=== PATIENT | male | born 1960 | race Caucasian/White ===

== ENCOUNTER 2016-09-23 17:04 | Emergency (ER) | payer MEDICAID, OTHER ==
[~2016-09-23] VITALS: Ht 177.8 cm; Wt 63.5 kg
[~2016-09-23 17:04] MED LIST: ADVAIR 250-501 EACH INH; ALBUTEROL SULF8.5 GM INH; ALBUTEROL2.5 MG/3 M INH; BACTRIM DS TAB1 EAC1 ORAL; CEPHALEXIN500 MG ORAL; CLINDAMYCIN HC150 MG ORAL; DIPHENHYDRAMINE25 M1 ORAL; HYDROCORTISONE28 G2 TP; HYDROXYZINE HCL50 M1 PO; IBUPROFEN600 MG ORAL; LEVAQUIN750 MG ORAL; NORCO 5-325 TA1 EACH ORAL; NORVIR100 MG ORAL; PERMETHRIN60 GM TOPIC; PREZISTA600 MG ORAL; SPIRIVA18 MCG INH; TRUVADA 200 MG1 EAC1 ORAL
[2016-09-23 17:45] VITALS: BP 136/83
[2016-09-23] MEDS ORDERED: PERMETHRIN60 GM TOPIC (18:08)
[2016-09-23] MEDS ORDERED: KEFLEX500 MG ORAL (18:08)
[2016-09-23] MEDS ORDERED: HYDROCORTISONE28 G2 TP (18:08)
[2016-09-23] MEDS ORDERED: HYDROXYZINE HCL50 M1 PO (18:08)
[2016-09-23 18:13] VITALS: BP 136/83
--- NOTE | 2016-09-24 14:46 | Emergency Room Report ---
History of Present Illness General Chief Complaint: Skin Rash/Abscess Source: Patient Present Illness HPI 55-year-old male presents ED complaining of rash to the body x3 days. Patient states he's been staying at his girlfriend's house. Patient notes diffuse rash , itchy, not painful. Notes some induration and discharge some areas where he has been scratching a lot. Denies fevers or chills. No other aggravating or relieving factors. Denies any other associated symptom Allergies: Coded Allergies: No Known Allergies (Unverified , 07/04/15) Patient History Past Medical History: none Past Surgical History: none Pertinent Family History: none Social History: Denies: alcohol use, drug use, smoking Immunizations: UTD Reviewed Nursing Documentation: PMH: Agreed, PSxH: Agreed Nursing Documentation-PMH Past Medical History: No History, Except For Hx Cancer: No Hx Gastrointestinal Problems: No Hx Neurological Problems: No Review of Systems All Other Systems: negative except mentioned in HPI Physical Exam Vital Signs Date Time Temp Pulse Resp B/P Pulse Ox O2 Delivery O2 Flow Rate FiO2 09/23/16 17:38 99.1 100 20 136/83 98 Room Air Sp02 EP Interpretation: reviewed, normal General Appearance: normal inspection, thin Head: normocephalic ENT: normal ENT inspection Neck: normal inspection Respiratory: chest non-tender, lungs clear, normal breath sounds, speaking full sentences Cardiovascular #1: regular rate, rhythm, no edema Gastrointestinal: normal bowel sounds, non tender, soft, non-distended, no guarding, no rebound Rectal: deferred Genitourinary: no CVA tenderness Musculoskeletal: normal inspection Neurologic: alert, oriented x3, responsive, motor strength/tone normal, sensory intact, speech normal Psychiatric: normal inspection Skin: rash - diffuse rash to body. linear excoriations noted. areas of induration to abdomen. no discharge Lymphatic: normal inspection Medical Decision Making Diagnostic Impression: Primary Impression: Rash and other nonspecific skin eruption ER Course Hospital Course 55-year-old male presents to ED with diffuse rash to body Differential diagnoses include: Cellulitis, dermatitis, insect bite, abscess Clinical course Patient placed on stretcher. After initial history, physical exam reveals a male in no acute distress. On exam there is a diffuse rash to the body, including the arms, chest and abdomen, face. Linear excoriations. Patches of induration and erythema where the patient has been scratching excessively. Clinically consistent with scabies. we will prescribe treatment of scabies, plus antihistamines, steroid creams Diagnosis - rash stable and discharged to home with prescription for elimite, hydroxyzine, hydrocortisone cream, keflex. Instructed to followup with PMD. Instructed return to ED if symptoms recur or worsen Last Vital Signs Date Time Temp Pulse Resp B/P Pulse Ox O2 Delivery O2 Flow Rate FiO2 09/23/16 18:13 99.1 100 20 136/83 98 Room Air Status: improved Disposition: HOME, SELF-CARE Condition: Stable Scripts Hydroxyzine Hcl (HYDROXYZINE HCL) 50 Mg Tablet 50 MG PO TID, #30 TAB Prov: NITA CEVALLOS M.D. 09/23/16 Cephalexin* (KEFLEX*) 500 Mg Capsule 500 MG ORAL Q6H, #28 CAP 0 Refills Prov: NITA CEVALLOS M.D. 09/23/16 Hydrocortisone Acetate 1% Onit (HYDROCORTISONE 1% OINT) Y Oint 28 GM TP DAILY for 10 Days, GM Prov: NITA CEVALLOS M.D. 09/23/16 Permethrin* (ELIMITE*) 60 Gm Cream..g. 1 APPLIC TOPIC ONCE, #60 GM 0 Refills Apply cream from head to toe; leave on for 8-14 hours before washing off with water; may reapply in 1 week if live mites appear. Prov: NITA CEVALLOS M.D. 09/23/16 Referrals: [facility],REFERRING (PCP) Patient Instructions: Pruritus NITA CEVALLOS M.D. Sep 24, 2016 14:46
== END 2016-09-23 18:13 | disposition home or self-care (01) ==
LOC: EMR 18:02
DX: R21 Rash and other nonspecific skin eruption (principal)
CPT/HCPCS: 99284

== ENCOUNTER 2016-09-25 09:08 | Emergency (ER) | payer OTHER ==
[~2016-09-25] VITALS: Ht 170.2 cm; Wt 68.9 kg
[~2016-09-25 09:08] MED LIST changes: +KEFLEX500 MG ORAL
[2016-09-25] MEDS ORDERED: DESONIDE15 GM TP (09:45)
--- NOTE | 2016-09-25 09:53 | Emergency Room Report ---
History of Present Illness General Chief Complaint: Skin Rash/Abscess Source: Patient Present Illness HPI 55 YO M returns again for rash/itch to face and extremities. Patient seen here 2 days prior for same. Was DCed with elimite cream - which he applied and washed off as instructed, Keflex - which he has been taking - and Hydroxyzine for itch. He denies fever/chills, blistering. Denies rash to interwebs of fingers. Patient known HIV+ on HAART. Allergies: Coded Allergies: No Known Allergies (Unverified , 07/04/15) Patient History Past Medical History: HIV Past Surgical History: none Pertinent Family History: none Social History: Denies: alcohol use, drug use, smoking Immunizations: UTD Reviewed Nursing Documentation: PMH: Agreed, PSxH: Agreed Nursing Documentation-PMH Past Medical History: No History, Except For Hx Cancer: No Hx Gastrointestinal Problems: No Hx Neurological Problems: No Review of Systems All Other Systems: negative except mentioned in HPI Physical Exam Vital Signs Date Time Temp Pulse Resp B/P Pulse Ox O2 Delivery O2 Flow Rate FiO2 09/25/16 09:24 98.1 96 18 128/75 98 Room Air Sp02 EP Interpretation: reviewed, normal General Appearance: normal inspection, well appearing, no apparent distress, alert, cachetic, other - continually twitching, easily irritated Head: normocephalic, atraumatic Eyes: bilateral eye EOMI, bilateral eye PERRL ENT: normal ENT inspection, hearing grossly normal, normal voice Neck: normal inspection, full range of motion, supple, no bony tend Cardiovascular #1: regular rate, rhythm, no edema Gastrointestinal: normal inspection, normal bowel sounds, non tender, soft, no guarding, no hernia Genitourinary: no CVA tenderness Musculoskeletal: normal inspection, back normal, normal range of motion, Brian' s Sign negative Neurologic: normal inspection, alert, oriented x3, responsive, caseworker intake III-XII nml as tested, motor strength/tone normal, speech normal Psychiatric: normal inspection, judgement/insight normal, mood/affect normal Skin: other - Multiple areas of red superifical erosion of epidermis on face, upper extremities, torso, abdomen. No blistering. No vesicles. Excoriations associated. No rash on webs of fingers. Medical Decision Making Diagnostic Impression: Primary Impression: Rash and other nonspecific skin eruption ER Course 55 YO M with rash. VSS. Afebrile. No fever/chills or blisters or vesicles Unlikely scabies as no rash between dgitis of fingers however patient already applied one round of elimite Erosions/blisters likely from scratching, picking disorder possibly related to HIV disease or HAART Concern for drug abuse/meth as well given patients appearance, likely undomiciled, cachexia, irritation Advised completion of keflex Hydroxizine as needed for itch Apply topical desonide as needed to area of itch/rash Last Vital Signs Date Time Temp Pulse Resp B/P Pulse Ox O2 Delivery O2 Flow Rate FiO2 09/25/16 09:24 98.1 96 18 128/75 98 Room Air Status: improved Disposition: HOME, SELF-CARE Condition: Improved Scripts Desonide (DESONIDE) 15 Gm Cream..g. 2 APPLIC TP BID Y for Itching/Pruritis for 7 Days, GM Prov: JAZZY COLLINS M.D. 09/25/16 Patient Instructions: Rash Additional Instructions: - Take ALL the cephelexin antibiotic until finished that you were prescribed previously - apply topical desonide to face and other areas of itch - Take the hydrox oral that you were prescribed as needed for itch - try to NOT scratch JAZZY COLLINS M.D. Sep 25, 2016 09:53
[2016-09-25 10:33] VITALS: BP 128/75
[2016-09-25 10:34] VITALS: BP 128/75
== END 2016-09-25 10:45 | disposition home or self-care (01) ==
LOC: EMR 09:30
DX: R21 Rash and other nonspecific skin eruption (principal)
CPT/HCPCS: 99283

== ENCOUNTER 2016-10-16 06:38 | Emergency (ER) | payer OTHER ==
[~2016-10-16] VITALS: Ht 180.3 cm; Wt 71.2 kg
[~2016-10-16 06:38] MED LIST changes: +DESONIDE15 GM TP
[2016-10-16 06:50] VITALS: BP 130/89
[2016-10-16] MEDS ORDERED: PERMETHRIN60 GM TOPIC (07:32)
[2016-10-16] MEDS ORDERED: HYDROCORTISONE28 G2 TP (07:32)
[2016-10-16] MEDS ORDERED: HYDROXYZINE HCL50 M1 PO (07:32)
[2016-10-16 07:40] VITALS: BP 126/78
--- NOTE | 2016-10-16 07:42 | Emergency Room Report ---
History of Present Illness General Chief Complaint: Skin Rash/Abscess Source: Patient Present Illness HPI Patient is a 55-year-old male who presented after having increased generalized itching and skin rash. Patient had prior history of scabies. He had a have any fever. He reports having a generalized itching to his face trunk and general areas. He had not been vomiting or having any changes in skin color. He denied any recent new soaps or shampoos. He had previously been treated with permethrin cream. Allergies: Coded Allergies: No Known Allergies (Unverified , 07/04/15) Patient History Past Medical History: see triage record Reviewed Nursing Documentation: PMH: Agreed, PSxH: Agreed Nursing Documentation-PMH Hx Cancer: No Hx Gastrointestinal Problems: No Hx Neurological Problems: No Review of Systems All Other Systems: negative except mentioned in HPI Physical Exam Vital Signs Date Time Temp Pulse Resp B/P Pulse Ox O2 Delivery O2 Flow Rate FiO2 10/16/16 06:42 98.1 107 16 99 Room Air 10/16/16 06:50 130/89 Sp02 EP Interpretation: reviewed, normal General Appearance: normal inspection, well appearing, no apparent distress, alert, GCS 15 Head: atraumatic ENT: normal ENT inspection, hearing grossly normal, normal voice Neck: normal inspection, full range of motion, supple, no bony tend Respiratory: normal inspection, lungs clear, normal breath sounds, no respiratory distress, no retraction, no wheezing Cardiovascular #1: regular rate, rhythm, no edema Gastrointestinal: normal inspection, normal bowel sounds, non tender, soft, no guarding, no hernia Genitourinary: no CVA tenderness Musculoskeletal: normal inspection, back normal, normal range of motion Neurologic: normal inspection, alert, oriented x3, responsive, technical assistant III-XII nml as tested, speech normal Psychiatric: normal inspection, judgement/insight normal, mood/affect normal Skin: normal color, other - small papular rash to extremities and trunk with excoriations Medical Decision Making Diagnostic Impression: Primary Impression: Dermatitis ER Course Patient presented for skin rash. Differential diagnosis included was not limited to Cevallos-Minh syndrome, scabies, urticaria, erythema multiforme, contact dermatitis. Patient's benign exam and does not appear to require any further imaging or laboratory testing at this time. The patient was given a prescription for permethrin cream as he has some lesions consistent with scabies although this does not definitely look like scabies. The patient also given hydrocortisone cream as well as Atarax for itching.The patient is advised to follow up with primary care doctor in 1-2 days. Patient is advised to return if any worsening condition or if any changes in status that are concerning. Last Vital Signs Date Time Temp Pulse Resp B/P Pulse Ox O2 Delivery O2 Flow Rate FiO2 10/16/16 06:50 98.4 78 16 130/89 100 Room Air Status: improved Disposition: HOME, SELF-CARE Condition: Stable Scripts Hydroxyzine Hcl (HYDROXYZINE HCL) 50 Mg Tablet 50 MG PO TID, #30 TAB Prov: Shahzad Youngblood 10/16/16 Hydrocortisone Acetate 1% Onit (HYDROCORTISONE 1% OINT) Y Oint 28 GM TP DAILY, #30 GM Prov: Shahzad Youngblood 10/16/16 Permethrin* (ELIMITE*) 60 Gm Cream..g. 1 APPLIC TOPIC ONCE, #60 GM 0 Refills Apply cream from head to toe; leave on for 8-14 hours before washing off with water; may reapply in 1 week if live mites appear. Prov: Shahzad Youngblood 10/16/16 Patient Instructions: Pruritus Shahzad Youngblood Oct 16, 2016 07:42
== END 2016-10-16 07:42 | disposition home or self-care (01) ==
LOC: EMR 06:50
DX: L30.9 Dermatitis, unspecified (principal)
CPT/HCPCS: 99284

== ENCOUNTER 2017-01-01 19:17 | Emergency (ER) | payer OTHER ==
[~2017-01-01] VITALS: Ht 175.3 cm; Wt 72.6 kg
[2017-01-01 19:36] VITALS: BP 114/71
[2017-01-01] MEDS ORDERED: PERMETHRIN60 GM TOPIC (19:36)
[2017-01-01] MEDS ORDERED: HYDROCORTISONE59 ML TP (19:36)
[2017-01-01 19:42] VITALS: BP 114/71
--- NOTE | 2017-01-01 20:39 | Emergency Room Report ---
History of Present Illness General Chief Complaint: Skin Rash/Abscess Present Illness HPI The patient is a 56-year-old male presenting for total body itching. The patient states that he stayed at someone's house over the past week and thinks he may have scabies. The patient has had scabies multiple times in the past and this feels the same. He denies any pain. He denies using any new products. He denies any known allergies. He has not tried anything for the itching. He denies any other symptoms including nausea, vomiting, fever, chills Allergies: Coded Allergies: No Known Allergies (Unverified , 07/04/15) Patient History Past Medical History: see triage record Pertinent Family History: none Reviewed Nursing Documentation: PMH: Agreed, PSxH: Agreed Nursing Documentation-PMH Hx Cancer: No Hx Gastrointestinal Problems: No Hx Neurological Problems: No Review of Systems All Other Systems: negative except mentioned in HPI Physical Exam Vital Signs Date Time Temp Pulse Resp B/P Pulse Ox O2 Delivery O2 Flow Rate FiO2 01/01/17 19:26 98.8 94 16 114/71 93 Room Air Sp02 EP Interpretation: reviewed, normal General Appearance: no apparent distress, alert, GCS 15, non-toxic Head: normocephalic, atraumatic Eyes: bilateral eye PERRL, bilateral eye normal inspection ENT: hearing grossly normal, normal pharynx, no angioedema, normal voice Neck: full range of motion, supple/symm/no masses Respiratory: chest non-tender, lungs clear, normal breath sounds, speaking full sentences Musculoskeletal: back normal, gait/station normal, normal range of motion, non- tender Neurologic: alert, oriented x3, responsive, motor strength/tone normal, sensory intact, speech normal Psychiatric: judgement/insight normal, memory normal, mood/affect normal, no suicidal/homicidal ideation Skin: rash - There is a diffuse erythematous rash with excoriations. There is burrowing noted. No edema. No fluctuance. No bleeding or discharge. Lymphatic: no adenopathy Medical Decision Making PA Attestation Dr. Villarreal is my supervising physician. Patient management was discussed with my supervising physician Diagnostic Impression: Primary Impression: Scabies ER Course The patient is a 56-year-old male presenting for total body itching Ddx considered include but not limited to insect bite, contact dermatitis, eczema, cellulitis Physical exam is consistent with scabies He'll be discharged home with a prescription for permethrin and hydrocortisone. ER precautions are given. He will do a thorough cleaning of his clothes and his living quarters. Last Vital Signs Date Time Temp Pulse Resp B/P Pulse Ox O2 Delivery O2 Flow Rate FiO2 01/01/17 19:42 98.8 16 114/71 93 Room Air 01/01/17 19:26 94 Status: improved Disposition: HOME, SELF-CARE Condition: Improved Scripts Permethrin* (ELIMITE*) 60 Gm Cream..g. 1 APPLIC TOPIC ONCE, #60 GM 0 Refills Apply cream from head to toe; leave on for 8-14 hours before washing off with water; may reapply in 1 week if live mites appear. Prov: JAMES CALHOUN 01/01/17 Hydrocortisone (HYDROCORTISONE) 59 Ml Lotion 59 ML TP TID, #59 ML Prov: JAMES CALHOUN 01/01/17 Referrals: [facility],REFERR[facility] (PCP) Patient Instructions: Pruritus Additional Instructions: I discussed my findings with the patient. All questions and concerns have been answered. Treatment and medication compliance have been addressed. I advised the patient that they need to follow up with PMD in 3-5 days. Return to ED if symptoms worsen, new symptoms arise, or if needed for any reason. Patient verbalized understanding of discharge instructions. JAMES CALHOUN January 01, 2017 20:39
== END 2017-01-01 19:45 | disposition home or self-care (01) ==
LOC: EMR 19:35
DX: B86 Scabies (principal)
CPT/HCPCS: 99284

== ENCOUNTER 2017-01-05 18:34 | Emergency (ER) | payer OTHER ==
[~2017-01-05] VITALS: Ht 175.3 cm; Wt 72.6 kg
[~2017-01-05 18:34] MED LIST changes: +HYDROCORTISONE59 ML TP
[2017-01-05 18:53] VITALS: BP 135/89
[2017-01-05] MEDS ORDERED: HYDROCORTISONE-30 GM TOPIC (18:54)
[2017-01-05] MEDS ORDERED: PERMETHRIN60 GM TOPIC (18:54)
--- NOTE | 2017-01-05 19:10 | Emergency Room Report ---
History of Present Illness General Chief Complaint: Skin Rash/Abscess Source: Patient Present Illness [facility] Patient presents and reports a few days ago he was treated for scabies He felt that most of the rash significantly improved however there was still some areas on the neck Denies any chest pain or shortness of breath denies any fevers or chills denies any vomiting or diarrhea The area feels itchy specifically in the back of the neck region and the left ear Allergies: Coded Allergies: No Known Allergies (Unverified , 07/04/15) Patient History Past Medical History: see triage record Pertinent Family History: none Reviewed Nursing Documentation: PMH: Agreed, PSxH: Agreed Nursing Documentation-PMH Hx Cancer: No Hx Gastrointestinal Problems: No Hx Neurological Problems: No Review of Systems All Other Systems: negative except mentioned in HPI Physical Exam Vital Signs Date Time Temp Pulse Resp B/P Pulse Ox O2 Delivery O2 Flow Rate FiO2 01/05/17 18:51 98.4 83 20 135/89 96 Room Air Sp02 EP Interpretation: reviewed, normal General Appearance: well appearing, no apparent distress Head: normocephalic, atraumatic Eyes: bilateral eye EOMI, bilateral eye PERRL ENT: hearing grossly normal, normal pharynx, TMs + canals normal, uvula midline Neck: full range of motion, supple, no meningismus, no bony tend Respiratory: lungs clear, normal breath sounds, no rhonchi, no respiratory distress, no retraction, no accessory muscle use Cardiovascular #1: normal peripheral pulses, regular rate, rhythm, no edema, no gallop, no JVD, no murmur Gastrointestinal: normal bowel sounds, non tender, soft, no mass, no organomegaly, non-distended, no guarding, no hernia, no pulsatile mass, no rebound Musculoskeletal: normal inspection Neurologic: oriented x3, responsive, trench digging machine operator III-XII nml as tested, motor strength/ tone normal, sensory intact Psychiatric: mood/affect normal Skin: other - Patient has a few areas in the posterior neck region and the lateral side on the right, with scab formation, linear, there is also an area on the left lateral ear, likely in line with scabies, Lymphatic: normal inspection, no adenopathy Medical Decision Making Diagnostic Impression: Primary Impression: Scabies Additional Impression: Dermatitis ER Course Patient appears to have significantly improved Therapy for scabies often does take more than one treatment Patient was given prescription for refill of the medication and will have close patient followup Last Vital Signs Date Time Temp Pulse Resp B/P Pulse Ox O2 Delivery O2 Flow Rate FiO2 01/05/17 18:53 98.4 20 135/89 96 Room Air 01/05/17 18:51 83 Status: unchanged Disposition: HOME, SELF-CARE Condition: Stable Scripts Hydrocortisone/Aloe Vera 1%* (HYDROCORTISONE-ALOE 1% CREAM*) Y Cr 1 APPLIC TOPIC Q6H Y for Itching for 7 Days, #30 GM Prov: SONIA TAM D.O. 01/05/17 Permethrin* (ELIMITE*) 60 Gm Cream..g. 1 APPLIC TOPIC ONCE, #60 GM 2 Refills Apply cream from head to toe; leave on for 8-14 hours before washing off with water; may reapply in 1 week if live mites appear. Prov: SONIA TAM D.O. 01/05/17 Patient Instructions: Scabies, Pediatric, Rash, [id number] Additional Instructions: Patient is provided with the discharge instructions notified to follow up with primary doctor in the next 2-3 days otherwise return to the er with any worsening symptoms. Please note that this report is being documented using [employer] technology. This can lead to erroneous entry secondary to incorrect interpretation by the dictating instrument. SONIA TAM D.O. January 05, 2017 19:10
[2017-01-05 19:14] VITALS: BP 135/89
== END 2017-01-05 19:15 | disposition home or self-care (01) ==
LOC: EMR 18:48
DX: B86 Scabies (principal); L30.9 Dermatitis, unspecified
CPT/HCPCS: 99284

== ENCOUNTER 2017-01-24 14:41 | Emergency (ER) | payer OTHER ==
[~2017-01-24] VITALS: Ht 177.8 cm; Wt 76.2 kg
[~2017-01-24 14:41] MED LIST changes: +HYDROCORTISONE-30 GM TOPIC
[2017-01-24 15:07] VITALS: BP 112/62
[2017-01-24] MEDS ORDERED: PERMETHRIN60 GM TOPIC (15:26)
[2017-01-24] MEDS ORDERED: KENALOG 0.5% CR15 GM APPLIC (15:26)
[2017-01-24] MEDS ORDERED: HYDROXYZINE HCL25 M1 PO (15:26)
--- NOTE | 2017-01-24 15:27 | Emergency Room Report ---
History of Present Illness General Chief Complaint: Skin Rash/Abscess Source: Patient Present Illness HPI 56 y/o homeless mail c/o rash all over body. Believes he has scabies as he has a history of it. States his rash is all over body and under his nails and highly pruritic and especially in his pubic area. No modifying factors and denies taking medication for his sxs. Allergies: Coded Allergies: No Known Allergies (Unverified , 07/04/15) Patient History Past Medical History: see triage record Past Surgical History: none Pertinent Family History: none Reviewed Nursing Documentation: PMH: Agreed, PSxH: Agreed Nursing Documentation-PMH Past Medical History: No History, Except For Hx Diabetes: Yes Hx Cancer: No Hx Gastrointestinal Problems: No Hx Neurological Problems: No Review of Systems All Other Systems: negative except mentioned in HPI Physical Exam Vital Signs Date Time Temp Pulse Resp B/P Pulse Ox O2 Delivery O2 Flow Rate FiO2 01/24/17 14:49 97.9 93 18 112/62 95 Room Air Sp02 EP Interpretation: reviewed, normal General Appearance: no apparent distress, alert, GCS 15, non-toxic Head: normocephalic, atraumatic Eyes: bilateral eye normal inspection ENT: normal ENT inspection Respiratory: normal breath sounds, no respiratory distress, speaking full sentences Cardiovascular #1: normal capillary refill Musculoskeletal: gait/station normal Neurologic: alert, oriented x3, responsive, motor strength/tone normal, sensory intact, speech normal Psychiatric: judgement/insight normal, memory normal, mood/affect normal, no suicidal/homicidal ideation Skin: normal color, warm/dry, well hydrated, rash - scattered papular rash with macules with central crusting. Nailbeds are erythematous bilaterally Medical Decision Making PA Attestation Dr. Montano is my supervising physician with whom patient management has been discussed with. Diagnostic Impression: Primary Impression: Rash and other nonspecific skin eruption ER Course Pt. presents to the ED c/o rash Ddx considered but are not limited to insect bite, scabies, allergic reaction, eczema, viral exanthem, abscess, cellulitis Vital signs: are WNL, pt. is afebrile H&PE are most consistent with non-specific rash, possible scabies based on hx ORDERS: none required at this time, the diagnosis is clinical ED INTERVENTIONS: none required at this time. DISCHARGE: At this time pt. is stable for d/c to home. Will provide printed patient care instructions, and any necessary prescriptions. Care plan and follow up instructions have been discussed with the patient prior to discharge. Last Vital Signs Date Time Temp Pulse Resp B/P Pulse Ox O2 Delivery O2 Flow Rate FiO2 01/24/17 15:07 97.9 82 18 112/62 95 Room Air Disposition: HOME, SELF-CARE Condition: Stable Scripts Triamcinolone Acet (Triamcinolone Acetonide) 15 Gm Cream..g. 0.1 % APPLIC BID Y for Itching/Pruritis, #60 GM Prov: SEN SORIANO.ALeyla 01/24/17 Hydroxyzine Hcl (HYDROXYZINE HCL) 25 Mg Tablet 25 MG PO TID for 10 Days, #30 TAB Prov: SEN SORIANO 01/24/17 Permethrin* (ELIMITE*) 60 Gm Cream..g. 1 APPLIC TOPIC ONCE, #60 GM 0 Refills Apply cream from head to toe; leave on for 8-14 hours before washing off with water; may reapply in 1 week if live mites appear. Prov: SEN SORIANO 01/24/17 Patient Instructions: Rash, Scabies, Pediatric Additional Instructions: Takie medication as directed. Patient advised to follow up with primary care provider within next 3-5 days. Keep splint and crutches as directed. Advised patient to use RICE therapy and nsaids as prescribed. Patient is to go to the ER immediately if they experience any pain that is not responding to medication , excess swelling, pressure feeling, loss of color, cyanosis, paralysis, or numbness. SEN SORIANO Jan 24, 2017 15:27
[2017-01-24 15:31] VITALS: BP 120/70
== END 2017-01-24 15:30 | disposition home or self-care (01) ==
LOC: EMR 15:05
DX: R21 Rash and other nonspecific skin eruption (principal); Z59.0 Homelessness; E11.9 Type 2 diabetes mellitus without complications
CPT/HCPCS: 99284

== ENCOUNTER 2017-02-24 14:04 | Emergency (ER) | payer OTHER ==
[~2017-02-24] VITALS: Ht 175.3 cm; Wt 79.4 kg
[~2017-02-24 14:04] MED LIST changes: +HYDROXYZINE HCL25 M1 PO; +KENALOG 0.5% CR15 GM APPLIC
[2017-02-24 14:51] VITALS: BP 128/75
[2017-02-24] MEDS ORDERED: BENADRYL25 MG ORAL (14:52)
[2017-02-24] MEDS ORDERED: ANTI-ITCH56 GM TP (14:52)
[2017-02-24 15:06] VITALS: BP 128/75
--- NOTE | 2017-03-01 05:48 | Emergency Room Report ---
History of Present Illness General Chief Complaint: Skin Rash/Abscess Source: Patient Present Illness HPI Patient is a 52-year-old male who presented after increased rash. A gradual onset of symptoms. Patient reported having multiple areas of the body which had become itchy after sleeping on a sofa. The patient states he does not scabies. He has had not been having any fever. He had prior history of HIV had been compliant with his medications reportedly. Allergies: Coded Allergies: No Known Allergies (Unverified , 07/04/15) Patient History Past Medical History: see triage record Reviewed Nursing Documentation: PMH: Agreed, PSxH: Agreed Nursing Documentation-PMH Hx Diabetes: Yes Hx Cancer: No Hx Gastrointestinal Problems: No Hx Neurological Problems: No Review of Systems All Other Systems: negative except mentioned in HPI Physical Exam Vital Signs Date Time Temp Pulse Resp B/P Pulse Ox O2 Delivery O2 Flow Rate FiO2 02/24/17 14:31 98.1 73 18 131/71 99 Room Air General Appearance: well appearing, no apparent distress, alert, GCS 15 Head: normocephalic, atraumatic ENT: hearing grossly normal, normal voice Neck: full range of motion, supple, other - lymphadenopathy submandibular Respiratory: no respiratory distress, speaking full sentences Musculoskeletal: normal inspection, digits/nails normal, no calf tenderness Neurologic: normal inspection, alert, oriented x3, normal gait Psychiatric: mood/affect normal Skin: other - multiple excoriated papular lesions Medical Decision Making Diagnostic Impression: Primary Impression: Dermatitis ER Course Patient presented for skin rash. Differential diagnosis included was not limited to Cevallos-Minh syndrome, urticaria, erythema multiforme, contact dermatitis. Patient's benign exam and does not appear to require any further imaging or laboratory testing at this time. The patient's rash appears to be contact dermatitis however this may represent a viral rash. The patient was given prescription for hydrocortisone cream. He is advised followup with his own physician in the next one to 2 days for recheck. Last Vital Signs Date Time Temp Pulse Resp B/P Pulse Ox O2 Delivery O2 Flow Rate FiO2 02/24/17 15:06 98.1 80 18 128/75 99 Room Air Status: unchanged Disposition: HOME, SELF-CARE Condition: Stable Scripts Hydrocortisone 2% Cream (ANTI-ITCH 2% CREAM) Y Cr 56 GM TP TWICE A DAY, #56 GM Prov: Shahzad Youngblood 02/24/17 Diphenhydramine Hcl* (BENADRYL*) 25 Mg Capsule 25 MG ORAL Q6H Y for Itching, #30 CAP Prov: Shahzad Youngblood 02/24/17 Referrals: [facility],REFERRING (PCP) Patient Instructions: Shahzad Joseph Mar 01, 2017 05:48
== END 2017-02-24 15:15 | disposition home or self-care (01) ==
LOC: EMR 14:50
DX: L30.9 Dermatitis, unspecified (principal); E11.9 Type 2 diabetes mellitus without complications
CPT/HCPCS: 99284

== ENCOUNTER 2017-02-27 21:23 | Emergency (ER) | payer OTHER ==
[~2017-02-27] VITALS: Ht 175.3 cm; Wt 66.7 kg
[~2017-02-27 21:23] MED LIST changes: +ANTI-ITCH56 GM TP; +BENADRYL25 MG ORAL
[2017-02-27 21:45] VITALS: BP 118/82
[2017-02-27] MEDS ORDERED: Dexamethasone 4mg/ml vial IM ONE (22:00)
[2017-02-27] MEDS ORDERED: PREDNISONE20 MG ORAL (22:03)
[2017-02-27] MEDS ORDERED: PERMETHRIN60 GM TOPIC (22:07)
[2017-02-27 22:20] VITALS: BP 118/82
--- NOTE | 2017-03-01 05:56 | Emergency Room Report ---
History of Present Illness General Chief Complaint: General Complaint Source: Patient Present Illness HPI Patient is a 56-year-old male presented after having increased generalized itchy skin rash. The patient had recently been seen by me given prescription for hydrocortisone cream. Patient was noted to have persistent itchiness. He is continued to have some lymphadenopathy below his jaw. He denied any fever. He had reportedly been sleeping on a sofa which he believes given the rash. Patient denies any other locations of problems at this time. Rash is noted to be diffusely throughout his entire body. Allergies: Coded Allergies: No Known Allergies (Unverified , 07/04/15) Patient History Past Medical History: see triage record Reviewed Nursing Documentation: PMH: Agreed, PSxH: Agreed Nursing Documentation-PMH Past Medical History: No Stated History Hx Diabetes: Yes Hx Cancer: No Hx Gastrointestinal Problems: No Hx Neurological Problems: No Review of Systems All Other Systems: negative except mentioned in HPI Physical Exam Vital Signs Date Time Temp Pulse Resp B/P Pulse Ox O2 Delivery O2 Flow Rate FiO2 02/27/17 21:38 97.9 101 16 118/82 99 Room Air General Appearance: well appearing, no apparent distress, alert, GCS 15 Head: normocephalic, atraumatic ENT: hearing grossly normal, normal voice Neck: full range of motion, supple Respiratory: no respiratory distress, speaking full sentences Musculoskeletal: no calf tenderness Neurologic: normal inspection, alert, oriented x3, normal gait Psychiatric: mood/affect normal Skin: other - multiple excoriated papules Medical Decision Making Diagnostic Impression: Primary Impression: Dermatitis Additional Impression: Rash and other nonspecific skin eruption ER Course Patient presented for skin rash. Differential diagnosis included was not limited to Cevallos-Minh syndrome, scabies, urticaria, erythema multiforme, contact dermatitis. Patient's benign exam and does not appear to require any further imaging or laboratory testing at this time. The patient is given prescription for prednisone for itching as well as well. The patient was also given prescription for permethrin cream. Patient is advised to recheck with primary care physician for reexamination next 2-3 days. Last Vital Signs Date Time Temp Pulse Resp B/P Pulse Ox O2 Delivery O2 Flow Rate FiO2 02/27/17 22:20 97.9 79 16 118/82 99 Room Air Status: improved Disposition: HOME, SELF-CARE Condition: Stable Scripts Permethrin* (ELIMITE*) 60 Gm Cream..g. 1 APPLIC TOPIC ONCE, #60 GM 0 Refills Apply cream from head to toe; leave on for 8-14 hours before washing off with water; may reapply in 1 week if live mites appear. Prov: Shahzad Youngblood 02/27/17 Prednisone* (PREDNISONE*) 20 Mg Tablet 20 MG ORAL DAILY, #5 TAB Prov: Shahzad Youngblood 02/27/17 Referrals: [facility],REFERRING (PCP) Patient Instructions: Contact Dermatitis, [id number] Shahzad Youngblood Mar 01, 2017 05:56
== END 2017-02-27 22:17 | disposition home or self-care (01) ==
LOC: EMR 21:40
DX: L30.9 Dermatitis, unspecified (principal); E11.9 Type 2 diabetes mellitus without complications
CPT/HCPCS: 96372; 99283; J1100

== ENCOUNTER 2017-05-02 14:39 | Emergency (ER) | payer OTHER ==
[~2017-05-02] VITALS: Ht 175.3 cm; Wt 74.8 kg
[~2017-05-02 14:39] MED LIST changes: +PREDNISONE20 MG ORAL
[2017-05-02 15:04] VITALS: BP 138/80
--- NOTE | 2017-05-02 15:13 | Emergency Room Report ---
History of Present Illness General Chief Complaint: Allergic Reaction Source: Patient Present Illness HPI 56 YO Male presents to the ED c/O severe itchy rash that he rates as 10/10 in severity , with no pain to the UE's, LE's, chest, neck and face x 2 weeks. pt. believes he developed symptoms after moving into a new apartment. pt. denies fevers, chills, or recent illness. Pt. reports hx of scabies. Denies new medications or body washes or creams. Denies swelling of the lips, tongue , throat or airway. Denies wheezing, or shortness of breath. Denies recent travel , recent illness or ill contacts. denies blisters, oral lesions, or sloughing of the skin. Denies CP, Palpitations, LOC, AMS, dizziness, Changes in Vision, Sensation, paresthesias, or a sudden severe headache. Allergies: Coded Allergies: No Known Allergies (Unverified , 07/04/15) Patient History Past Medical History: see triage record Past Surgical History: none Pertinent Family History: none Immunizations: UTD Reviewed Nursing Documentation: PMH: Agreed, PSxH: Agreed Nursing Documentation-PMH Hx Cardiac Problems: No Hx Hypertension: No Hx Pacemaker: No Hx Asthma: No Hx COPD: No Hx Diabetes: No Hx Cancer: No Hx Gastrointestinal Problems: No Hx Dialysis: No History Of Psychiatric Problem: No Hx Neurological Problems: No Hx Cerebrovascular Accident: No Hx Seizures: No Review of Systems All Other Systems: negative except mentioned in HPI Physical Exam Vital Signs Date Time Temp Pulse Resp B/P (MAP) Pulse Ox O2 Delivery O2 Flow Rate FiO2 05/02/17 14:43 98.1 98 22 131/82 96 Room Air Sp02 EP Interpretation: reviewed, normal General Appearance: alert, GCS 15, non-toxic, mild distress - pt. can't stop scratching durring PE. Head: normocephalic, atraumatic Eyes: bilateral eye normal inspection, bilateral eye PERRL ENT: hearing grossly normal, normal pharynx, no angioedema, normal voice, other - no swelling of the lips or tongue Neck: full range of motion, supple/symm/no masses Respiratory: chest non-tender, lungs clear, normal breath sounds, speaking full sentences Cardiovascular #1: regular rate, rhythm Musculoskeletal: back normal, gait/station normal, normal range of motion, non- tender Neurologic: alert, oriented x3, responsive, motor strength/tone normal, sensory intact, speech normal Psychiatric: judgement/insight normal, memory normal, mood/affect normal Skin: normal color, warm/dry, well hydrated, rash - multiple papules in linear fashion with excoriations on the bilateral wrists radiating up the UE toward axilla, across torso, posterior neck and hair line, bilateral ankles, no crusting or evidence of secodnary infection, no LAD, non blanching, no blisters or vessicles Lymphatic: no adenopathy Medical Decision Making PA Attestation Dr. Montano is my supervising Physician whom patient management has been discussed with. Diagnostic Impression: Primary Impression: Rash and other nonspecific skin eruption Additional Impression: Scabies ER Course 56 YO Male presents to the ED c/O severe itchy rash that he rates as 10/10 in severity , with no pain to the UE's, LE's, chest, neck and face x 2 weeks. pt. believes he developed symptoms after moving into a new apartment. pt. denies fevers, chills, or recent illness. Pt. reports hx of scabies. Denies new medications or body washes or creams. Denies swelling of the lips, tongue , throat or airway. Denies wheezing, or shortness of breath. Denies recent travel , recent illness or ill contacts. denies blisters, oral lesions, or sloughing of the skin. Denies CP, Palpitations, LOC, AMS, dizziness, Changes in Vision, Sensation, paresthesias, or a sudden severe headache. Ddx considered but are not limited to cellulitis, scabies, shingles, varicella, dermatitis, urticaria, eczema, tinea Vital signs: are WNL, pt. is afebrile H&PE are most consistent with Scabies infestation and localized reaction. ORDERS: none required at this time, the diagnosis is clinical ED INTERVENTIONS: -Prednisone 60mg PO d/w pt. the importance of thorough cleaning of all bedding and clothing to deter re-current infestation. -d/w pt that may require dermatological follow up if he continues to have symptoms. gave ED return precautions for worsening or new symptoms. DISCHARGE: At this time pt. is stable for d/c to home. Will provide printed patient care instructions, and any necessary prescriptions. Care plan and follow up instructions have been discussed with the patient prior to discharge. Last Vital Signs Date Time Temp Pulse Resp B/P (MAP) Pulse Ox O2 Delivery O2 Flow Rate FiO2 05/02/17 15:04 98.2 84 20 138/80 96 Room Air Disposition: HOME, SELF-CARE Condition: Stable Scripts Prednisone* (PREDNISONE*) 20 Mg Tablet 40 MG ORAL DAILY for 5 Days, #10 TAB Prov: Carol Marshall 05/02/17 Diphenhydramine Hcl (BENADRYL ALLERGY) 25 Mg Tablet 25 MG PO Q6HR, #30 TAB Prov: Carol Marshall 05/02/17 Permethrin* (ELIMITE*) 60 Gm Cream..g. 1 APPLIC TOPIC ONCE, #60 GM 3 Refills Apply cream from head to toe; leave on for 8-14 hours before washing off with water; may reapply in 1 week if live mites appear. Prov: Carol Marshall 05/02/17 Patient Instructions: Contact Precautions, [id number], Scabies, Pediatric Additional Instructions: Take medications as directed. Follow up with a Primary Care Provider in 3-5 days, even if your symptoms have resolved. --Please review list of primary care clinics, if you do not already have a primary care provider Return sooner to ED if new symptoms occur, or current symptoms become worse. Do not drink alcohol, drive, or operate heavy machinery while taking Benadryl as this may cause drowsiness. - Please note that this Emergency Department Report was dictated using [employer] splitter technology software, occasionally this can lead to erroneous entry secondary to interpretation by the dictation equipment. Carol Marshall May 02, 2017 15:13
[2017-05-02] MEDS ORDERED: PERMETHRIN60 GM TOPIC (15:20)
[2017-05-02] MEDS ORDERED: BENADRYL ALLERG25 M1 PO (15:20)
[2017-05-02] MEDS ORDERED: PREDNISONE20 MG ORAL (15:20)
[2017-05-02 15:39] VITALS: BP 133/84
== END 2017-05-02 15:44 | disposition home or self-care (01) ==
LOC: EMR 15:15
DX: R21 Rash and other nonspecific skin eruption (principal); B86 Scabies
CPT/HCPCS: 99284

== ENCOUNTER 2017-05-18 04:16 | Emergency (ER) | payer OTHER ==
[~2017-05-18] VITALS: Ht 177.8 cm; Wt 72.6 kg
[~2017-05-18 04:16] MED LIST changes: +BENADRYL ALLERG25 M1 PO
[2017-05-18] MEDS ORDERED: PERMETHRIN60 GM TOPIC (04:53)
[2017-05-18] MEDS ORDERED: PREDNISONE20 MG ORAL (04:53)
[2017-05-18] MEDS ORDERED: DIPHENHYDRAMINE25 M1 ORAL (04:53)
[2017-05-18 05:04] VITALS: BP_SYST 132; BP_SYST 154; BP_DIAS 102; BP_DIAS 68
--- NOTE | 2017-05-18 07:04 | Emergency Room Report ---
History of Present Illness General Chief Complaint: Skin Rash/Abscess Source: Patient Present Illness HPI 56-year-old male presents ED thinning of the rash. States he's had a rash all over his body for the last 2 weeks. States he was seen here on May 02 for similar rash and was prescribed medications. States it helped initially but then the symptoms returned. Patient states he feels very itchy. Denies any pain. Denies any fevers or chills. Patient states he's had multiple episodes of scabies in the past. No other aggravating relieving factors. Denies any other associated symptom Allergies: Coded Allergies: No Known Allergies (Unverified , 07/04/15) Patient History Past Medical History: none Past Surgical History: none Pertinent Family History: none Social History: Denies: smoking, alcohol use, drug use Immunizations: UTD Reviewed Nursing Documentation: PMH: Agreed, PSxH: Agreed Nursing Documentation-PMH Hx Cardiac Problems: No Hx Hypertension: No Hx Pacemaker: No Hx Asthma: No Hx COPD: No Hx Diabetes: No Hx Cancer: No Hx Gastrointestinal Problems: No Hx Dialysis: No Hx Neurological Problems: No Hx Cerebrovascular Accident: No Hx Seizures: No Review of Systems All Other Systems: negative except mentioned in HPI Physical Exam Vital Signs Date Time Temp Pulse Resp B/P (MAP) Pulse Ox O2 Delivery O2 Flow Rate FiO2 05/18/17 04:37 98.1 93 18 154/102 97 Room Air Sp02 EP Interpretation: reviewed, normal General Appearance: no apparent distress, alert, GCS 15, non-toxic Head: normocephalic, atraumatic Eyes: bilateral eye normal inspection, bilateral eye PERRL ENT: hearing grossly normal, normal pharynx, no angioedema, normal voice Neck: full range of motion, supple/symm/no masses Respiratory: chest non-tender, lungs clear, normal breath sounds, speaking full sentences Cardiovascular #1: regular rate, rhythm, no edema Cardiovascular #2: 2+ carotid (R), 2+ carotid (L), 2+ radial (R), 2+ radial (L) , 2+ dorsalis pedis (R), 2+ dorsalis pedis (L) Gastrointestinal: normal bowel sounds, non tender, soft, non-distended, no guarding, no rebound Rectal: deferred Genitourinary: normal inspection, no CVA tenderness Musculoskeletal: back normal, gait/station normal, normal range of motion, non- tender Neurologic: alert, oriented x3, responsive, motor strength/tone normal, sensory intact, speech normal Psychiatric: judgement/insight normal, memory normal, mood/affect normal, no suicidal/homicidal ideation Reflexes: 3+ bicep (R), 3+ bicep (L), 3+ tricep (R), 3+ tricep (L), 3+ knee (R) , 3+ knee (L) Skin: normal color, warm/dry, well hydrated, rash - multiple linear excoriations to body, between fingers Lymphatic: no adenopathy Medical Decision Making Diagnostic Impression: Primary Impression: Scabies Additional Impression: Dermatitis ER Course Hospital Course 56-year-old male presents to ED with rash to body Differential diagnoses include: Cellulitis, dermatitis, insect bite, abscess Clinical course Patient placed on stretcher. After initial history, physical exam reveals a middle aged male in no acute distress. On exam there are multiple linear excoriations noted to the extremities, face, and fingers. Consistent with scabies. I reviewed EMR patient is been here multiple times with similar episodes noted to be either dermatitis or scabies. We will treat the similar fashion Diagnosis - scabies stable and discharged to home with prescription for prednisone, permethrin, benedryl. Instructed to followup with PMD. Instructed return to ED if symptoms recur or worsen Last Vital Signs Date Time Temp Pulse Resp B/P (MAP) Pulse Ox O2 Delivery O2 Flow Rate FiO2 05/18/17 05:04 132/68 05/18/17 05:04 98.1 18 97 Room Air 05/18/17 04:37 93 Status: improved Disposition: HOME, SELF-CARE Condition: Stable Scripts Diphenhydramine Hcl* (DIPHENHYDRAMINE HCL*) 25 Mg Capsule 25 MG ORAL Q6H Y for Itching, #30 CAP 0 Refills Prov: NITA CEVALLOS M.D. 05/18/17 Prednisone* (PREDNISONE*) 20 Mg Tablet 40 MG ORAL DAILY, #10 TAB Prov: NITA CEVALLOS M.D. 05/18/17 Permethrin* (ELIMITE*) 60 Gm Cream..g. 1 APPLIC TOPIC ONCE, #60 GM 0 Refills Apply cream from head to toe; leave on for 8-14 hours before washing off with water; may reapply in 1 week if live mites appear. Prov: NITA CEVALLOS M.D. 05/18/17 Referrals: [facility],REFERRING (PCP) Patient Instructions: Contact Precautions, [id number] NITA CEVALLOS M.D. May 18, 2017 07:04
== END 2017-05-18 05:05 | disposition home or self-care (01) ==
LOC: EMR 04:45
DX: B86 Scabies (principal); L30.9 Dermatitis, unspecified
CPT/HCPCS: 99284

== ENCOUNTER 2017-06-09 15:17 | Emergency (ER) | payer OTHER ==
[~2017-06-09] VITALS: Ht 182.9 cm; Wt 77.1 kg
--- NOTE | 2017-06-09 16:59 | Emergency Room Report ---
History of Present Illness General Chief Complaint: Skin Rash/Abscess Present Illness HPI 56-year-old male presents emergency department complaining of return of his moderate she into multiple lesions of the extremities x2 days. Patient states that he recently was treated for scabies and that initially his symptoms improved however he has had return of the symptoms. Patient reports that he is been having difficulty decontaminating his surroundings to avoid re- contamination.Denies lesions/rashes elsewhere on the body. Denies new medications or body washes or creams. Denies swelling of the lips, tongue , throat or airway. Denies wheezing, or shortness of breath. Denies recent travel , recent illness or ill contacts. denies blisters, oral lesions, or sloughing of the skin. Denies CP, Palpitations, LOC, AMS, dizziness, Changes in Vision, Sensation, paresthesias, or a sudden severe headache. Allergies: Coded Allergies: No Known Allergies (Unverified , 07/04/15) Patient History Past Medical History: see triage record Past Surgical History: none Pertinent Family History: none Reviewed Nursing Documentation: PMH: Agreed, PSxH: Agreed Nursing Documentation-PMH Hx Cardiac Problems: No Hx Hypertension: No Hx Pacemaker: No Hx Asthma: No Hx COPD: No Hx Diabetes: No Hx Cancer: No Hx Gastrointestinal Problems: No Hx Dialysis: No Hx Neurological Problems: No Hx Cerebrovascular Accident: No Hx Seizures: No Review of Systems All Other Systems: negative except mentioned in HPI Physical Exam Vital Signs Date Time Temp Pulse Resp B/P (MAP) Pulse Ox O2 Delivery O2 Flow Rate FiO2 06/09/17 15:25 98.1 86 20 149/84 99 Room Air Sp02 EP Interpretation: reviewed, normal General Appearance: no apparent distress, alert, GCS 15, non-toxic Head: normocephalic, atraumatic Eyes: bilateral eye normal inspection, bilateral eye PERRL ENT: hearing grossly normal, normal pharynx, no angioedema, normal voice, other - no swelling of the lips or tongue Neck: full range of motion Respiratory: lungs clear, normal breath sounds, no wheezing, speaking full sentences Cardiovascular #1: regular rate, rhythm Musculoskeletal: back normal, gait/station normal, normal range of motion, non- tender, no calf tenderness Neurologic: alert, oriented x3, responsive, motor strength/tone normal, sensory intact, speech normal Psychiatric: mood/affect normal Skin: normal color, warm/dry, well hydrated, rash - excoriations to bilateral upper and lower extremities, neck, and flanks. no evidence of secondary infeciton noted, no blisters no vesicles. Medical Decision Making PA Attestation Dr. Montano is my supervising Physician whom patient management has been discussed with. Diagnostic Impression: Primary Impression: Rash and other nonspecific skin eruption Additional Impressions: Scabies Medication refill ER Course 56-year-old male presents emergency department complaining of return of his moderate she into multiple lesions of the extremities x2 days. Patient states that he recently was treated for scabies and that initially his symptoms improved however he has had return of the symptoms. Patient reports that he is been having difficulty decontaminating his surroundings to avoid re- contamination.Denies lesions/rashes elsewhere on the body. Denies new medications or body washes or creams. Denies swelling of the lips, tongue , throat or airway. Denies wheezing, or shortness of breath. Denies recent travel , recent illness or ill contacts. denies blisters, oral lesions, or sloughing of the skin. Denies CP, Palpitations, LOC, AMS, dizziness, Changes in Vision, Sensation, paresthesias, or a sudden severe headache. Ddx considered but are not limited to cellulitis, scabies, shingles, varicella, dermatitis, urticaria, eczema, tinea, viral exanthem, SJS Vital signs: are WNL, pt. is afebrile H&PE are most consistent with rash suspicious for scabies ORDERS: none required at this time, the diagnosis is clinical ED INTERVENTIONS: None required at this time. Encouraged patient to follow up with the fire lieutenant. DISCHARGE: At this time pt. is stable for d/c to home. Will provide printed patient care instructions, and any necessary prescriptions. Care plan and follow up instructions have been discussed with the patient prior to discharge. Last Vital Signs Date Time Temp Pulse Resp B/P (MAP) Pulse Ox O2 Delivery O2 Flow Rate FiO2 06/09/17 15:25 98.1 86 20 149/84 99 Room Air Disposition: HOME, SELF-CARE Condition: Stable Scripts Permethrin* (ELIMITE*) 60 Gm Cream..g. 1 APPLIC TOPIC ONCE, #60 GM 0 Refills Apply cream from head to toe; leave on for 8-14 hours before washing off with water; may reapply in 1 week if live mites appear. Prov: Carol Marshall 06/09/17 Diphenhydramine Hcl (BENADRYL ALLERGY) 25 Mg Tablet 25 MG PO Q6HR, #20 TAB Prov: Carol Marshall 06/09/17 Referrals: [facility],REFERR[facility] (PCP) Patient Instructions: Rash Additional Instructions: Take medications as directed. Follow up with a Primary Care Provider in 3-5 days, even if your symptoms have resolved. --Please review list of primary care clinics, if you do not already have a primary care provider Return sooner to ED if new symptoms occur, or current symptoms become worse. Do not drink alcohol, drive, or operate heavy machinery while taking Benadryl as this may cause drowsiness. - Please note that this Emergency Department Report was dictated using [email or web address]anner technology software, occasionally this can lead to erroneous entry secondary to interpretation by the dictation equipment. Carol Marshall Jun 09, 2017 16:59
[2017-06-09] MEDS ORDERED: BENADRYL ALLERG25 M1 PO (17:00)
[2017-06-09] MEDS ORDERED: PERMETHRIN60 GM TOPIC (17:00)
[2017-06-09 17:18] VITALS: BP 149/84
[2017-06-09 18:10] VITALS: BP 149/84
== END 2017-06-09 18:10 | disposition home or self-care (01) ==
LOC: EMR 16:15
DX: B86 Scabies (principal); Z76.0 Encounter for issue of repeat prescription
CPT/HCPCS: 99283

== ENCOUNTER 2017-08-18 14:21 | Emergency (ER) | payer OTHER ==
[~2017-08-18] VITALS: Ht 170.2 cm; Wt 59.0 kg
[2017-08-18] MEDS ORDERED: Morphine Sulfate 4mg/ml Inj IVP ONE (14:45)
--- NOTE | 2017-08-18 14:48 | Emergency Room Report ---
History of Present Illness General Chief Complaint: Abdominal Pain Source: Patient Present Illness HPI 56-year-old male history of alcohol abuse presenting with abdominal pain for one day. Patient pointing to his abdomen is painful all over. Started today. States that he had one episode of nonbilious nonbloody vomiting. Also states that he has had some diarrhea. Denies any history of abdominal surgeries. States that he "does not drink as much" as he used to Allergies: Coded Allergies: No Known Allergies (Unverified , 07/04/15) Patient History Past Medical History: see triage record Past Surgical History: none Pertinent Family History: none Reviewed Nursing Documentation: PMH: Agreed, PSxH: Agreed Nursing Documentation-PMH Hx Cardiac Problems: No Hx Hypertension: No Hx Pacemaker: No Hx Asthma: No Hx COPD: No Hx Diabetes: No Hx Cancer: No Hx Gastrointestinal Problems: No Hx Dialysis: No Hx Neurological Problems: No Hx Cerebrovascular Accident: No Hx Seizures: No Review of Systems All Other Systems: negative except mentioned in HPI Physical Exam Vital Signs Date Time Temp Pulse Resp B/P (MAP) Pulse Ox O2 Delivery O2 Flow Rate FiO2 08/18/17 14:25 97.5 97 20 116/60 99 Room Air Sp02 EP Interpretation: reviewed, normal General Appearance: alert, GCS 15, non-toxic, moderate distress Head: normocephalic, atraumatic Eyes: bilateral eye normal inspection, bilateral eye PERRL, bilateral eye EOMI ENT: normal ENT inspection, normal pharynx, normal voice, moist mucus membranes Neck: normal inspection, full range of motion, supple Respiratory: normal inspection, lungs clear, normal breath sounds, no respiratory distress, no retraction, no wheezing, speaking full sentences, chest symmetrical Cardiovascular #1: normal inspection, regular rate, rhythm, normal capillary refill Cardiovascular #2: 2+ radial (R), 2+ radial (L) Gastrointestinal: other - generalized tenderness, however abdomen is soft, not rigid, normal bowel sounds Genitourinary: no CVA tenderness Musculoskeletal: normal inspection, back normal, normal range of motion, non- tender Neurologic: normal inspection, alert, oriented x3, responsive, motor strength/ tone normal, sensory intact, normal gait, speech normal Psychiatric: normal inspection, judgement/insight normal, memory normal Skin: normal color, warm/dry, well hydrated, normal turgor, other - pt with generalized crusted rash on neck, abdomen, nontender Medical Decision Making Diagnostic Impression: Primary Impression: Renal insufficiency Additional Impressions: Abdominal pain Scabies Polysubstance abuse Opiate abuse, continuous Cocaine abuse ER Course 56-year-old male, history of alcohol abuse, with abdominal pain Differential Diagnosis: Gastritis, gastroenteritis, cholecystitis, appendicitis, diverticulitis, SBO, mesenteric ischemia, cardiac, UTI/pyelo Plan: Basic labs, ua, ekg pain control, IVF CT abdopelvis ER course: Patient has remained stable during ED stay. Pain improved. Repeat abdominal exam is nontender. CT negative pt has been NAD during ED stay, tolerated PO, has been talking on the phone urine positive for polysubstance use will dc home Disposition: Patient is to be discharged to home. DCed with pepcid, permethrin cream Patient is instructed to follow up with their primary care doctor within 5 days. Strict return precautions discussed with patient such as fever, chills, worsening/severe abdominal pain, nausea, vomiting, black or bloody stools, which may indicate severe illness. Patient verbalizes understanding and agrees with plan. Please note that this Emergency Department Report was dictated using [employer] Medicaltelecommunications officer technology software, occasionally this can lead to erroneous entry secondary to interpretation by the dictation equipment Rhythm Strip EP Interpretation: Yes Rate: 91 Rhythm: NSR, no PVCs, no ectopy EKG Diagnostic Results EP Interpretation: Yes Rate: normal Rhythm: NSR ST Segments: ST depressions noted in the inferior leads ASA given to patient: Y Laboratory Tests Test 08/18/17 14:40 08/18/17 16:15 White Blood Count 9.4 K/UL (4.8-10.8) Red Blood Count 5.32 M/UL (4.70-6.10) Hemoglobin 15.6 G/DL (14.2-18.0) Hematocrit 46.5 % (42.0-52.0) Mean Corpuscular Volume 88 FL (80-99) Mean Corpuscular Hemoglobin 29.4 PG (27.0-31.0) Mean Corpuscular Hemoglobin Concent 33.6 G/DL (32.0-36.0) Red Cell Distribution Width 12.2 % (11.6-14.8) Platelet Count 143 K/UL (150-450) L Mean Platelet Volume 7.9 FL (6.5-10.1) Neutrophils (%) (Auto) 71.2 % (45.0-75.0) Lymphocytes (%) (Auto) 16.5 % (20.0-45.0) L Monocytes (%) (Auto) 11.0 % (1.0-10.0) H Eosinophils (%) (Auto) 0.3 % (0.0-3.0) Basophils (%) (Auto) 0.9 % (0.0-2.0) Sodium Level 131 MMOL/L (136-145) L Potassium Level 3.5 MMOL/L (3.5-5.1) Chloride Level 96 MMOL/L (98-107) L Carbon Dioxide Level 25 MMOL/L (21-32) Anion Gap 10 mmol/L (5-15) Blood Urea Nitrogen 38 mg/dL (7-18) H Creatinine 1.7 MG/DL (0.55-1.30) H Estimate Glomerular Filtration Rate 42.2 mL/min (>60) Glucose Level 147 MG/DL (74-106) H Calcium Level 7.7 MG/DL (8.5-10.1) L Total Bilirubin 0.3 MG/DL (0.2-1.0) Aspartate Amino Transferase (AST) 29 U/L (15-37) Alanine Aminotransferase (ALT) 20 U/L (12-78) Alkaline Phosphatase 83 U/L (46-116) Troponin I 0.013 ng/mL (0.000-0.056) Total Protein 7.8 G/DL (6.4-8.2) Albumin 3.5 G/DL (3.4-5.0) Globulin 4.3 g/dL Albumin/Globulin Ratio 0.8 (1.0-2.7) L Lipase 135 U/L (73-393) Serum Alcohol < 3 mg/dL Urine Color Yellow Urine Appearance Clear Urine pH 5 (4.5-8.0) Urine Specific [place] 1.025 (1.005-1.035) Urine Protein 2+ (NEGATIVE) H Urine Glucose (UA) Negative (NEGATIVE) Urine Ketones Negative (NEGATIVE) Urine Occult Blood 3+ (NEGATIVE) H Urine Nitrite Negative (NEGATIVE) Urine Bilirubin Negative (NEGATIVE) Urine Urobilinogen Normal MG/DL (0.0-1.0) Urine Leukocyte Esterase 3+ (NEGATIVE) H Urine RBC Pending Urine WBC Pending Urine Squamous Epithelial Cells Pending Urine Bacteria Pending Urine Opiates Screen Pending Urine Barbiturates Screen Pending Phencyclidine (PCP) Screen Pending Urine Amphetamines Screen Pending Urine Benzodiazepines Screen Pending Urine Cocaine Screen Pending Urine Marijuana (THC) Screen Pending CT/MRI/US Diagnostic Results CT/MRI/US Diagnostic Results : Imaging Test Ordered: CT abdo pelvis Impression Findings: The lung bases are clear. Solid organ evaluation is limited on noncontrast imaging. Gallbladder is noted and unremarkable in appearance. There are punctate calcifications within both kidneys consistent with nonobstructive stones. The right kidney is malrotated. There is no hydronephrosis. Aortoiliac calcifications are present. Focal rounded calcification noted in the area of the fritz hepatis nonspecific. No evidence of bowel obstruction. No free air identified. Small inguinal nodes are present nonspecific. Partial visualization of the appendix which is normal. No free fluid or free air identified. IMPRESSION: Nonobstructive bilateral nephrolithiasis. Atherosclerotic disease Malrotation of the right kidney. Normal appendix. Rounded calcification in the area the fritz hepatis nonspecific. Last Vital Signs Date Time Temp Pulse Resp B/P (MAP) Pulse Ox O2 Delivery O2 Flow Rate FiO2 08/18/17 14:25 97.5 97 20 116/60 99 Room Air Disposition: HOME, SELF-CARE Condition: Improved Scripts Ondansetron Odt* (ZOFRAN ODT*) 4 Mg Tab.rapdis 4 MG ORAL Q6H Y for Nausea & Vomiting, #15 TAB 0 Refills Prov: Horacio Bai M.D. 08/18/17 Famotidine (PEPCID) 40 Mg Tablet 40 MG PO DAILY, #14 TAB 0 Refills Prov: Horacio Bai M.D. 08/18/17 Permethrin* (ELIMITE*) 60 Gm Cream..g. 1 APPLIC TOPIC ONCE, #60 GM 0 Refills Apply cream from head to toe; leave on for 8-14 hours before washing off with water; may reapply in 1 week if live mites appear. Prov: Horacio Bai M.D. 08/18/17 Horacio Bai M.D. Aug 18, 2017 14:48
[2017-08-18 15:05] LABS: BASOPHILS % (AUTO) 0.9 % (0.0-2.0); EOSINOPHILS % (AUTO) 0.3 % (0.0-3.0); LYMPHOCYTES % (AUTO) 16.5 % (20.0-45.0); MEAN CORPUSCULAR HEMOGLOBIN 29.4 PG (27.0-31.0); MEAN CORPUSCULAR HGB CONC 33.6 G/DL (32.0-36.0); MEAN CORPUSCULAR VOLUME 88 FL (80-99); MEAN PLATELET VOLUME 7.9 FL (6.5-10.1); NEUTROPHILS % (AUTO) 71.2 % (45.0-75.0); PLATELET COUNT 143 K/UL (150-450); RED BLOOD COUNT 5.32 M/UL (4.70-6.10); RED CELL DISTRIBUTION WIDTH 12.2 % (11.6-14.8); WHITE BLOOD COUNT 9.4 K/UL (4.8-10.8)
[2017-08-18 15:11] LABS: ANION GAP 10 mmol/L (5-15); CALCIUM 7.7 MG/DL (8.5-10.1); CARBON DIOXIDE 25 MMOL/L (21-32); CHLORIDE 96 MMOL/L (98-107); CREATININE 1.7 MG/DL (0.55-1.30); GLOMERULAR FILTRATION RATE 42.2 mL/min (>60); POTASSIUM 3.5 MMOL/L (3.5-5.1); SODIUM 131 MMOL/L (136-145)
[2017-08-18 15:15] LABS: ALANINE AMINOTRANSFERASE 20 U/L (12-78); ALBUMIN/GLOBULIN RATIO 0.8 (1.0-2.7); ASPARTATE AMINO TRANSFERASE 29 U/L (15-37); LIPASE 135 U/L (73-393); TOTAL PROTEIN 7.8 G/DL (6.4-8.2)
--- NOTE | 2017-08-18 16:27 | Diagnostic Imaging Report ---
Indication: Abdominal pain Technique: Continuous helical transaxial imaging of the abdomen and pelvis was obtained from the lung bases to the pubic symphysis. No intravenous contrast was administered. Coronal 2-D reformats were also obtained. Automatic Exposure Control was utilized. Total Dose length Product (DLP): 455.[address] Dose Index Volume (CTDIvol): 9.54 mGy Comparison: none Findings: The lung bases are clear. Solid organ evaluation is limited on noncontrast imaging. Gallbladder is noted and unremarkable in appearance. There are punctate calcifications within both kidneys consistent with nonobstructive stones. The right kidney is malrotated. There is no hydronephrosis. Aortoiliac calcifications are present. Focal rounded calcification noted in the area of the fritz hepatis nonspecific. No evidence of bowel obstruction. No free air identified. Small inguinal nodes are present nonspecific. Partial visualization of the appendix which is normal. No free fluid or free air identified. IMPRESSION: Nonobstructive bilateral nephrolithiasis. Atherosclerotic disease Malrotation of the right kidney. Normal appendix. Rounded calcification in the area the fritz hepatis nonspecific. The CT scanner at [facility] is accredited by the [employer] and the scans are performed using dose optimization techniques as appropriate to a performed exam including Automatic Exposure control.
[2017-08-18 16:52] LABS: APPEARANCE,URINE CLEAR; KETONES,URINE NEGATIVE (NEGATIVE); LEUKOCYTE ESTERASE ,URINE 3+ (NEGATIVE); NITRITE,URINE NEGATIVE (NEGATIVE); PH,URINE 5 (4.5-8.0); PROTEIN,URINE 2+ (NEGATIVE); UROBILINOGEN,URINE NORMAL MG/DL (0.0-1.0)
[2017-08-18] MEDS ORDERED: ZOFRAN ODT4 MG ORAL (17:06)
[2017-08-18] MEDS ORDERED: PEPCID40 MG PO (17:06)
[2017-08-18] MEDS ORDERED: PERMETHRIN60 GM TOPIC (17:06)
[2017-08-18 17:14] VITALS: BP 116/60
[2017-08-18 17:15] LABS: AMORPHOUS SEDIMENT,UR FEW /LPF; BACTERIA,URINE FEW /HPF
[2017-08-18 17:29] VITALS: BP 116/60
--- NOTE | 2017-08-31 00:21 | Cardiology Report ---
APPROVED REPORT EKG Measurement Heart [id number] Sinus rhythm with occasional premature ventricular complexes Biatrial enlargement Rightward axis Pulmonary disease pattern T wave abnormality, consider inferior ischemia Abnormal ECG
== END 2017-08-18 18:00 | disposition home or self-care (01) ==
LOC: EMR 14:36
DX: R10.9 Unspecified abdominal pain (principal); N28.9 Disorder of kidney and ureter, unspecified; B86 Scabies; F19.10 Other psychoactive substance abuse, uncomplicated; F14.10 Cocaine abuse, uncomplicated; F11.10 Opioid abuse, uncomplicated; N20.0 Calculus of kidney
CPT/HCPCS: 36415; 74176; 80053; 80307; 80329; 81003; 83690; 84484; 85025; 93005; 96361; 96374; 96375; 99284; J2270; J2405

== ENCOUNTER 2017-08-26 16:54 | Emergency (ER) | payer OTHER ==
[~2017-08-26] VITALS: Ht 177.8 cm; Wt 77.1 kg
[~2017-08-26 16:54] MED LIST changes: +PEPCID40 MG PO; +ZOFRAN ODT4 MG ORAL
[2017-08-26] MEDS ORDERED: TAMIFLU75 MG ORAL (17:55)
[2017-08-26] MEDS ORDERED: TESSALON PERLE100 MG ORAL (17:55)
--- NOTE | 2017-08-26 18:05 | Emergency Room Report ---
History of Present Illness General Chief Complaint: Upper Respiratory Illness Source: Patient Present Illness HPI 56-year-old male p/w cough for 3 days. Pt states cough is productive, with yellow sputum. +fever chills runny nose, myalgias. No sick contacts or recent travel. Patient does not smoke. Allergies: Coded Allergies: No Known Allergies (Unverified , 07/04/15) Patient History Past Medical History: see triage record Past Surgical History: none Pertinent Family History: none Reviewed Nursing Documentation: PMH: Agreed, PSxH: Agreed Nursing Documentation-PMH Past Medical History: No History, Except For Hx Hypertension: No Hx Pacemaker: No Hx Asthma: No Hx COPD: Yes Hx Diabetes: Yes Hx Cancer: No Hx Gastrointestinal Problems: No Hx Dialysis: No Hx Neurological Problems: No Hx Cerebrovascular Accident: No Hx Seizures: No Review of Systems All Other Systems: negative except mentioned in HPI Physical Exam Vital Signs Date Time Temp Pulse Resp B/P (MAP) Pulse Ox O2 Delivery O2 Flow Rate FiO2 08/26/17 17:28 98.2 93 18 122/69 92 Room Air Sp02 EP Interpretation: reviewed, normal General Appearance: alert, GCS 15, non-toxic, mild distress Head: normocephalic, atraumatic Eyes: bilateral eye normal inspection, bilateral eye PERRL, bilateral eye EOMI ENT: normal ENT inspection, normal pharynx, normal voice, moist mucus membranes Neck: normal inspection, full range of motion, supple Respiratory: normal inspection, lungs clear, normal breath sounds, no respiratory distress, no retraction, no wheezing, speaking full sentences, chest symmetrical Cardiovascular #1: normal inspection, regular rate, rhythm, normal capillary refill Cardiovascular #2: 2+ radial (R), 2+ radial (L) Gastrointestinal: normal inspection, non tender, soft, non-distended, no guarding Genitourinary: no CVA tenderness Musculoskeletal: normal inspection, back normal, normal range of motion, non- tender Neurologic: normal inspection, alert, oriented x3, responsive, motor strength/ tone normal, sensory intact, normal gait, speech normal Psychiatric: normal inspection, judgement/insight normal, memory normal Skin: normal inspection, normal color, no rash, warm/dry, well hydrated, normal turgor Medical Decision Making Diagnostic Impression: Primary Impression: Upper respiratory infection ER Course 56-year-old male, 3 days of flulike illness, fever chills cough runny nose, myalgias DDX: Flulike illness vs. pneumonia Plan: CXR ER course: Patient remains nontoxic, not in resp distress. CXR obtained - no acute infiltrate Disposition: Patient is to be discharged home with a prescription of Tamiflu and Tessalon Perles Strict precautions discussed with patient on when to return to the emergency room including hemoptysis, high fevers, chills, SOB, chest pain which may indicate severe illness. Patient is to follow up with their primary care doctor within 5 days. Patient agrees with plan. Please note that this Emergency Department Report was dictated using [employer] pi developer technology software, occasionally this can lead to erroneous entry secondary to interpretation by the dictation equipment Chest X-ray CXR: Ordered: Yes 1 view Indication: Cough EP interpretation: Yes Interpretation: No consolidation, no effusion, no PTX, no acute cardiopulmonary disease Impression: No acute disease Electronically signed by Horacio Bai MD Last Vital Signs Date Time Temp Pulse Resp B/P (MAP) Pulse Ox O2 Delivery O2 Flow Rate FiO2 08/26/17 17:28 98.2 93 18 122/69 92 Room Air Disposition: HOME, SELF-CARE Condition: Stable Scripts Benzonatate* (TESSALON PERLE*) 100 Mg Capsule 100 MG ORAL THREE TIMES A DAY for 7 Days, #21 PERLE 0 Refills Prov: Horacio Bai M.D. 08/26/17 Oseltamivir Phosphate (Tamiflu) 75 Mg Capsule 75 MG ORAL TWICE A DAY for 5 Days, #10 CAP 0 Refills Prov: Horacio Bai M.D. 08/26/17 Patient Instructions: Upper Respiratory Infection, Adult Additional Instructions: Please see your doctor in 4 days without fail Horacio Bai M.D. Aug 26, 2017 18:05
[2017-08-26 18:11] VITALS: BP 126/81
--- NOTE | 2017-08-27 08:51 | Diagnostic Imaging Report ---
Indication: Cough, shortness of breath Technique: 2 views of the chest Comparison: 02/22/2016 Findings: There is minimal atelectasis of the left lung base. Lungs and pleural spaces are clear otherwise. The heart size is normal. No significant change Impression: Minimal left basilar atelectasis No acute process
== END 2017-08-26 18:11 | disposition home or self-care (01) ==
LOC: EMR 17:51
DX: J06.9 Acute upper respiratory infection, unspecified (principal); E11.9 Type 2 diabetes mellitus without complications; J44.9 Chronic obstructive pulmonary disease, unspecified
CPT/HCPCS: 71045; 99283

== ENCOUNTER 2017-10-18 12:01 | Emergency (ER) | payer OTHER ==
[~2017-10-18] VITALS: Ht 177.8 cm; Wt 72.6 kg
[~2017-10-18 12:01] MED LIST changes: +TAMIFLU75 MG ORAL; +TESSALON PERLE100 MG ORAL
[2017-10-18 12:07] VITALS: BP 145/96
[2017-10-18] MEDS ORDERED: HYDROXYZINE PA100 MG ORAL (12:31)
[2017-10-18] MEDS ORDERED: OPCON-A EYE DRO15 ML OP (12:31)
[2017-10-18] MEDS ORDERED: PERMETHRIN60 GM TOPIC (12:31)
--- NOTE | 2017-10-18 12:31 | Emergency Room Report ---
History of Present Illness General Chief Complaint: Skin Rash/Abscess Source: Patient Present Illness HPI 56 yo male patient presents to ER complaining of bug bites on his entire body for the past days. Patient reports itchiness over legs, hands, web spaces, arm pits, scalp, and butt. No pain with urination, no hematuria, no genital rash. Patient denies pain, bleeding, open wounds, pus. Patient denies worsening of symptoms at certain times of the day. Patient reports bleeding after scratching areas while cleaning himself in shower. Patient reports being sent here by neighbor over concern for scabies. Patient reports having apartment sprayed for bugs professionally but symptoms have persisted. Patient reports he has not cleaned or washed clothing or bedding Patient also complains of itchy eyes during this time. Denies FB sensation, loss of vision. Patient reports no drainage, no vision changes, no hearing changes. Patient denies fever, chest pain, SOB, diarrhea. Allergies: Coded Allergies: No Known Allergies (Unverified , 07/04/15) Patient History Past Medical History: see triage record Reviewed Nursing Documentation: PMH: Agreed, PSxH: Agreed Nursing Documentation-PMH Past Medical History: No History, Except For Hx Hypertension: No Hx Pacemaker: No Hx Asthma: No Hx COPD: Yes Hx Diabetes: Yes Hx Cancer: No Hx Gastrointestinal Problems: No Hx Dialysis: No Hx Neurological Problems: No Hx Cerebrovascular Accident: No Hx Seizures: No Review of Systems All Other Systems: negative except mentioned in HPI Physical Exam Vital Signs Date Time Temp Pulse Resp B/P (MAP) Pulse Ox O2 Delivery O2 Flow Rate FiO2 10/18/17 12:07 98.0 85 16 145/96 92 98.1 Sp02 EP Interpretation: reviewed, normal General Appearance: well appearing, no apparent distress, alert, GCS 15, non- toxic Head: normocephalic, atraumatic Eyes: bilateral eye normal inspection, bilateral eye PERRL, bilateral eye EOMI , bilateral eye other - no injection, no tearing, no crusting, no pain with eye movement ENT: hearing grossly normal, normal pharynx, normal voice, uvula midline, moist mucus membranes Neck: normal inspection, full range of motion, no bony tend Respiratory: normal inspection, normal breath sounds, no accessory muscle use, no wheezing, speaking full sentences Cardiovascular #1: regular rate, rhythm Genitourinary: penis normal Musculoskeletal: back normal, digits/nails normal, gait/station normal, normal range of motion, no calf tenderness Neurologic: alert, oriented x3, responsive, motor strength/tone normal, normal gait Psychiatric: mood/affect normal Skin: other - hyperpigmented macules and papules diffusely spread over legs, seen in web spaces, no linear burrows; no acitve bleeding, no open drainage, no surrounding erythema, no signs of infection; no rash or bugs seen on scalp, neck , axilla, back Medical Decision Making PA Attestation Dr. Bai is my supervising Physician whom patient management has been discussed with. Diagnostic Impression: Primary Impression: Rash and other nonspecific skin eruption Additional Impression: Itchy eyes ER Course Pt. presents to the ED c/o rash. Ddx considered but are not limited to atopic dermatitis, scabies, shingles, hives, urticaria, angioedema., allergic reaction, allergic rhinitis. Vital signs: are WNL, pt. is afebrile ORDERS: None required at this time, the diagnosis is clinical ED INTERVENTIONS: None required at this time. DISCHARGE: At this time pt. is stable for d/c to home. Patient resting comfortably, in no acute distress, nontoxic appearing. Will provide printed patient care instructions, and any necessary prescriptions. -Rx given for Hydroxyzine for pruritic symptoms. -Rx provided for Opcon-A eye drops for itchy eyes. -Rx given for Permethrin cream. Care plan and follow up instructions have been discussed with the patient prior to discharge. Patient instructed to practice good hygiene habits; clean clothe and bedding at home.Patient instructed not to touch lesions on skin and butt then touch face and eyes. Patient instructed to contact insurance to establish primary care provider. Patient instructed to follow-up with primary care provider in 3 - 5 days for further treatment and referral. Patient questions asked and answered. Patient reports understanding and agreement to treatment plan. ER precautions given. Patient instructed to return to ER immediately for any new or worsening of symptoms including but not limited to increasing SOB, persistent fever, worsening of rash. Last Vital Signs Date Time Temp Pulse Resp B/P (MAP) Pulse Ox O2 Delivery O2 Flow Rate FiO2 10/18/17 12:07 98.0 85 16 145/96 92 98.1 Disposition: HOME, SELF-CARE Condition: Stable Scripts Naphazoline Hcl/Pheniramine (OPCON-A EYE DROPS) 15 Ml Drops 15 ML OP TID for 7 Days, #15 ML Prov: Gregorio Morrow 10/18/17 Hydroxyzine Pamoate* (HYDROXYZINE PAMOATE*) 100 Mg Capsule 100 MG ORAL Q6H for 7 Days, #20 TAB 0 Refills Prov: Gregorio Morrow 10/18/17 Permethrin* (ELIMITE*) 60 Gm Cream..g. 1 APPLIC TOPIC ONCE, #60 GM 0 Refills Apply cream from head to toe; leave on for 8-14 hours before washing off with water; may reapply in 1 week if live mites appear. Prov: Gregorio Morrow 10/18/17 Patient Instructions: Allergic Conjunctivitis, [id number], Bedbugs, Easy-to- Read, Scabies, Pediatric Additional Instructions: Followup with primary care provider in 3 -5 days. Contact insurance to establish primary care. Wash clothes and bedding at home thoroughly. Take medications as directed. Patient questions asked and answered. ER precautions given, patient instructed to return to ER immediately for any new or worsening of symptoms. Gregorio Morrow Oct 18, 2017 12:31
[2017-10-18 12:44] VITALS: BP 142/89
== END 2017-10-18 12:34 | disposition home or self-care (01) ==
LOC: EMR 12:30
DX: R21 Rash and other nonspecific skin eruption (principal); H57.8 Other specified disorders of eye and adnexa; E11.9 Type 2 diabetes mellitus without complications; J44.9 Chronic obstructive pulmonary disease, unspecified
CPT/HCPCS: 99284

== ENCOUNTER 2017-12-13 18:34 | Emergency (ER) | payer OTHER ==
[~2017-12-13] VITALS: Ht 180.3 cm; Wt 72.6 kg
[~2017-12-13 18:34] MED LIST changes: +HYDROXYZINE PA100 MG ORAL; +OPCON-A EYE DRO15 ML OP
[2017-12-13] MEDS ORDERED: ELIMITE 5% CREA60 GM TOPIC (19:10)
--- NOTE | 2017-12-13 19:10 | Emergency Room Report ---
History of Present Illness General Chief Complaint: Skin Rash/Abscess Present Illness HPI patient is a 57-year-old male who presents today with complaints of rash that began 3 days ago. He states he spent the night and friends house over the weekend and noticed a rash and itching began shortly after. He has a history medication for the itching. Denies any fever, chills or systemic symptoms. Allergies: Coded Allergies: No Known Allergies (Unverified , 07/04/15) Patient History Reviewed Nursing Documentation: PMH: Agreed; PSxH: Agreed Nursing Documentation-PMH Hx Cardiac Problems: Yes Hx Hypertension: Yes Hx Pacemaker: No Hx Asthma: No Hx COPD: Yes Hx Diabetes: Yes Hx Cancer: No Hx Gastrointestinal Problems: No Hx Dialysis: No Hx Neurological Problems: No Hx Cerebrovascular Accident: No Hx Seizures: No Review of Systems Skin: Reports: rash All Other Systems: negative except mentioned in HPI Physical Exam Vital Signs Date Time Temp Pulse Resp B/P (MAP) Pulse Ox O2 Delivery O2 Flow Rate FiO2 12/13/17 18:43 97.9 81 20 128/74 98 Room Air 97.9 Sp02 EP Interpretation: reviewed, normal General Appearance: no apparent distress, alert, GCS 15, non-toxic Head: normocephalic, atraumatic Eyes: bilateral eye normal inspection, bilateral eye PERRL ENT: hearing grossly normal, normal pharynx, no angioedema, normal voice Neck: full range of motion, supple/symm/no masses Respiratory: chest non-tender, lungs clear, normal breath sounds, speaking full sentences Cardiovascular #1: regular rate, rhythm, no edema Cardiovascular #2: 2+ carotid (R), 2+ carotid (L), 2+ radial (R), 2+ radial (L) , 2+ dorsalis pedis (R), 2+ dorsalis pedis (L) Gastrointestinal: normal bowel sounds, non tender, soft, non-distended, no guarding, no rebound Rectal: deferred Genitourinary: normal inspection, no CVA tenderness Musculoskeletal: back normal, gait/station normal, normal range of motion, non- tender, calf tenderness Neurologic: alert, oriented x3, responsive, motor strength/tone normal, sensory intact, speech normal Psychiatric: judgement/insight normal, memory normal, mood/affect normal, no suicidal/homicidal ideation Reflexes: 3+ bicep (R), 3+ bicep (L), 3+ tricep (R), 3+ tricep (L), 3+ knee (R) , 3+ knee (L) Skin: normal color, warm/dry, well hydrated, other - burrows noted in the webspace of the fingers bilateral hands, bilateral forearms and axilla. No evidence of infection Lymphatic: no adenopathy Medical Decision Making PA Attestation supervising physician is Dr. Chatterjee Diagnostic Impression: Primary Impression: Scabies ER Course Patient is treated with permethrin for scabies. Patient is educated on ways to clean his home. No evidence of infection. Instructed to follow-up with his B for further evaluation and management. Patient understands and is agreeable with plan. Last Vital Signs Date Time Temp Pulse Resp B/P (MAP) Pulse Ox O2 Delivery O2 Flow Rate FiO2 12/13/17 18:43 97.9 81 20 128/74 98 Room Air 97.9 Status: improved Disposition: HOME, SELF-CARE Condition: Stable Scripts Permethrin (Permethrin) 60 Gm Cream..g. 1 APPLIC TOPIC ONCE, #60 GM 2 Refills Prov: Andreea Fisher 12/13/17 Andreea Fisher Dec 13, 2017 19:10
[2017-12-13 19:15] VITALS: BP 128/74
[2017-12-13 20:28] VITALS: BP 128/74
== END 2017-12-13 20:00 | disposition home or self-care (01) ==
LOC: EMR 19:12
DX: B86 Scabies (principal); I10 Essential (primary) hypertension; J44.9 Chronic obstructive pulmonary disease, unspecified; E11.9 Type 2 diabetes mellitus without complications
CPT/HCPCS: 99283

== ENCOUNTER 2018-02-07 12:05 | Emergency (ER) | payer OTHER ==
[~2018-02-07] VITALS: Ht 177.8 cm; Wt 63.5 kg
[~2018-02-07 12:05] MED LIST changes: +ELIMITE 5% CREA60 GM TOPIC
[2018-02-07 12:59] VITALS: BP 155/74
--- NOTE | 2018-02-07 14:01 | Diagnostic Imaging Report ---
Indication: Pain Technique: XRAY Chest 1v Comparison: None Findings: There is mild hyperinflation with flattening of the diaphragms. There is patchy opacity at the left base which may represent atelectasis or scarring. Similar findings were seen on the prior exam. There is mild peribronchial thickening. There is trace left pleural fluid. No pneumothorax. No acute osseous abnormality. Heart size and mediastinal contours are within normal limits and stable compared to the prior exam. Previously seen bilateral nodular densities are appreciated on prior CT. Impression: Bilateral peribronchial thickening suggesting small airway disease/bronchitis. More focal opacities at the left lung base may related to atelectasis or scarring however the possibility of a developing pneumonia is not entirely excluded. Clinical correlation and follow-up exam recommended. Trace left pleural fluid. Findings suggestive of mild COPD. Grossly described bilateral nodular densities not as well-seen as compared to the prior CT. Consider non-emergent CT chest to assess for persistence/resolution of these findings.
[2018-02-07] MEDS ORDERED: Ketorolac 60mg Inj IM ONE (14:15)
[2018-02-07 14:45] LABS: HEMATOCRIT 41.5 % (42.0-52.0); HEMOGLOBIN 13.9 G/DL (14.2-18.0); MEAN CORPUSCULAR VOLUME 87 FL (80-99); PLATELET COUNT 227 K/UL (150-450); RED BLOOD COUNT 4.77 M/UL (4.70-6.10); RED CELL DISTRIBUTION WIDTH 11.2 % (11.6-14.8); WHITE BLOOD COUNT 20.5 K/UL (4.8-10.8)
[2018-02-07 15:08] LABS: ALANINE AMINOTRANSFERASE 18 U/L (12-78); ALBUMIN 2.9 G/DL (3.4-5.0); ALBUMIN/GLOBULIN RATIO 0.6 (1.0-2.7); ALKALINE PHOSPHATASE 91 U/L (46-116); ASPARTATE AMINO TRANSFERASE 18 U/L (15-37); BILIRUBIN,TOTAL 0.6 MG/DL (0.2-1.0); BLOOD UREA NITROGEN 8 mg/dL (7-18); CKMB 4.3 NG/ML (0.0-3.6); CREATINE KINASE 181 U/L (26-308); CREATININE 0.8 MG/DL (0.55-1.30)
[2018-02-07 15:14] LABS: ANION GAP 7 mmol/L (5-15); CARBON DIOXIDE 28 MMOL/L (21-32); CHLORIDE 99 MMOL/L (98-107); SODIUM 134 MMOL/L (136-145)
[2018-02-07 15:51] VITALS: BP 155/74
--- NOTE | 2018-02-07 15:58 | Diagnostic Imaging Report ---
Indication: Pain Technique: Noncontrast CT of the abdomen and pelvis utilizing automated exposure control. Axial, sagittal and coronal reformats presented. CT dose: Total DLP 506.54 mGycm; CTDI vol 10.14 mGy Comparison: 08/18/2017 Findings: Please note that evaluation of the abdominal and pelvic viscera and vascular structures is limited without the use of intravenous and oral contrast. Within these limitations the following observations are made: Peribronchial thickening with tree-in-bud opacities in the bilateral lower lobes, left greater than right. There is more focal consolidation in the lingula which may related to atelectasis/scarring or developing focus of bronchopneumonia. Are some scattered nodular densities, is noted in the periphery of the left lower lobe and measures approximately 7 mm. These may be infectious or inflammatory in etiology however follow-up is recommended. No pleural effusion or pneumothorax. Heart size within normal limits. There is unchanged calcification in the region of the fritz hepatis. Gallbladder is unremarkable. Liver contour appears smooth. Spleen adrenal glands and pancreas grossly unremarkable for noncontrast CT. There are bilateral subcentimeter renal stones. No evidence of hydronephrosis bilaterally. There is thickening of the wall of the urinary bladder. Prostate appears borderline enlarged. Multiple pelvic phleboliths again noted. There is no free peritoneal air. There is no evidence of bowel obstruction or definite inflammatory change of the mesentery however evaluation is limited without contrast. Abdominal aorta is normal in caliber with overall mild atherosclerotic calcification. No pathologically enlarged lymphadenopathy is appreciated. There are degenerative changes of the spine with plate sclerosis at L4-L5 and L5-S1 and severe loss of disc height at L5-S1. IMPRESSION: Limited exam without intravenous and oral contrast. Within these limitations: * Peribronchial thickening with tree-in-bud opacities in the bilateral lower lobes, left greater than right -nonspecific finding most commonly infectious or inflammatory in etiology. Consider infectious bronchiolitis. Small focus of more dense consolidation in the lingula which may related to atelectasis/scarring or developing focus of bronchopneumonia. * Scattered subcentimeter pulmonary nodules, largest in the left lower lobe. These may be infectious or inflammatory in etiology however follow-up is recommended. * Nonobstructing bilateral renal stones. * No evidence of bowel obstruction. * Degenerative change of the spine, most pronounced from L4 to S1. The CT scanner at [facility] is accredited by the [employer] and the scans are performed using protocols designed to limit radiation exposure to as low as reasonably achievable to attain images of sufficient resolution adequate for diagnostic evaluation.
--- NOTE | 2018-02-07 19:32 | Emergency Room Report ---
History of Present Illness General Chief Complaint: Upper Respiratory Illness Source: Patient Present Illness HPI Patient present with complaints of left lower abdominal pain nausea vomiting denies any diarrhea Pain came on fairly quickly And he has been nauseated since then Denies any chest pain He had reported initially some shortness of breath Denies any recent trauma Denies any focal weakness denies any headache Patient appears uncomfortable upon arrival Allergies: Coded Allergies: No Known Allergies (Unverified , 07/04/15) Patient History Past Medical History: see triage record Pertinent Family History: none Reviewed Nursing Documentation: PMH: Agreed; PSxH: Agreed Nursing Documentation-PMH Hx Cardiac Problems: Yes - HIV Hx Hypertension: Yes Hx Pacemaker: No Hx Asthma: No Hx COPD: Yes Hx Diabetes: Yes Hx Cancer: No Hx Gastrointestinal Problems: No Hx Dialysis: No Hx Neurological Problems: No Hx Cerebrovascular Accident: No Hx Seizures: No Review of Systems All Other Systems: negative except mentioned in HPI Physical Exam Vital Signs Date Time Temp Pulse Resp B/P (MAP) Pulse Ox O2 Delivery O2 Flow Rate FiO2 02/07/18 12:29 98.6 117 24 155/74 92 Room Air 98.6 Sp02 EP Interpretation: reviewed, normal General Appearance: mild distress - Actively nauseated Head: normocephalic, atraumatic Eyes: bilateral eye PERRL, bilateral eye EOMI ENT: normal pharynx, no angioedema Neck: supple Respiratory: lungs clear, no retraction, no accessory muscle use Cardiovascular #1: tachycardia Gastrointestinal: non tender, soft Genitourinary: no CVA tenderness Musculoskeletal: normal inspection Neurologic: alert, oriented x3, responsive Skin: no rash, warm/dry Lymphatic: no adenopathy Medical Decision Making Diagnostic Impression: Primary Impression: Abdominal pain Additional Impression: Bronchitis ER Course With the history exam and presentation, multiple differentials considered, including but not limited to appendicitis, gastritis, cholecystitis, diverticulitis Given the patient's breathing complaints chest x-ray was also obtained Patient's x-ray shows nonspecific findings CT imaging was obtained which shows increased markings in the lower lobes question early developing pneumonia No other injury acute abdominal pathology patient was mainly complaining of abdominal pain At this time patient's white blood cell count was also elevated Raising concern of possible infection and developing pneumonia patient was having IV established and further intervention however was reported to eloped from the emergency room Patient's previous presentation was concerning with multiple ingestions of cocaine and amphetamine Also possibly she been to his elevated white blood cell count today I received a phone call from [facility] emergency room, patient had presented to the emergency room with complaints of abdominal pain The facility was provided with her CT report and patient's behavior is extremely concerning for opiate seeking behavior, and poor medical follow-up Labs Test 02/07/18 14:20 White Blood Count 20.5 K/UL (4.8-10.8) Red Blood Count 4.77 M/UL (4.70-6.10) Hemoglobin 13.9 G/DL (14.2-18.0) Hematocrit 41.5 % (42.0-52.0) Mean Corpuscular Volume 87 FL (80-99) Mean Corpuscular Hemoglobin 29.1 PG (27.0-31.0) Mean Corpuscular Hemoglobin Concent 33.4 G/DL (32.0-36.0) Red Cell Distribution Width 11.2 % (11.6-14.8) Platelet Count 227 K/UL (150-450) Mean Platelet Volume 6.6 FL (6.5-10.1) Neutrophils (%) (Auto) % (45.0-75.0) Lymphocytes (%) (Auto) % (20.0-45.0) Monocytes (%) (Auto) % (1.0-10.0) Eosinophils (%) (Auto) % (0.0-3.0) Basophils (%) (Auto) % (0.0-2.0) Differential Total Cells Counted 100 Neutrophils % (Manual) 75 % (45-75) Lymphocytes % (Manual) 14 % (20-45) Monocytes % (Manual) 7 % (1-10) Eosinophils % (Manual) 4 % (0-3) Basophils % (Manual) 0 % (0-2) Band Neutrophils 0 % (0-8) Platelet Estimate Adequate Platelet Morphology Normal Red Blood Cell Morphology Normal Sodium Level 134 MMOL/L (136-145) Potassium Level 4.0 MMOL/L (3.5-5.1) Chloride Level 99 MMOL/L (98-107) Carbon Dioxide Level 28 MMOL/L (21-32) Anion Gap 7 mmol/L (5-15) Blood Urea Nitrogen 8 mg/dL (7-18) Creatinine 0.8 MG/DL (0.55-1.30) Estimat Glomerular Filtration Rate > 60 mL/min (>60) Glucose Level 109 MG/DL (74-106) Calcium Level 9.0 MG/DL (8.5-10.1) Total Bilirubin 0.6 MG/DL (0.2-1.0) Aspartate Amino Transf (AST/SGOT) 18 U/L (15-37) Alanine Aminotransferase (ALT/SGPT) 18 U/L (12-78) Alkaline Phosphatase 91 U/L (46-116) Total Creatine Kinase 181 U/L (26-308) Creatine Kinase MB 4.3 NG/ML (0.0-3.6) Creatine Kinase MB Relative Index 2.3 Troponin I 0.059 ng/mL (0.000-0.056) Total Protein 7.9 G/DL (6.4-8.2) Albumin 2.9 G/DL (3.4-5.0) Globulin 5.0 g/dL Albumin/Globulin Ratio 0.6 (1.0-2.7) Lipase 67 U/L (73-393) EKG Diagnostic Results Rate: tachycardiac Rhythm: other ST Segments: other - Nonspecific ST and T-wave changes Rhythm Strip Diag. Results EP Interpretation: yes Rate: 110 Rhythm: no PVC's, no ectopy, other Chest X-Ray Diagnostic Results Chest X-Ray Diagnostic Results : Chest X-Ray Ordered: Yes # of Views/Limited/Complete: 1 View Indication: Shortness of Breath EP Interpretation: Yes Interpretation: no consolidation, no effusion CT/MRI/US Diagnostic Results CT/MRI/US Diagnostic Results : Impression CT abdomen pelvisIMPRESSION: Limited exam without intravenous and oral contrast. Within these limitations: * Peribronchial thickening with tree-in-bud opacities in the bilateral lower lobes, left greater than right -nonspecific finding most commonly infectious or inflammatory in etiology. Consider infectious bronchiolitis. Small focus of more dense consolidation in the lingula which may related to atelectasis/scarring or developing focus of bronchopneumonia. * Scattered subcentimeter pulmonary nodules, largest in the left lower lobe. These may be infectious or inflammatory in etiology however follow-up is recommended. * Nonobstructing bilateral renal stones. * No evidence of bowel obstruction. * Degenerative change of the spine, most pronounced from L4 to S1. Last Vital Signs Date Time Temp Pulse Resp B/P (MAP) Pulse Ox O2 Delivery O2 Flow Rate FiO2 02/07/18 15:51 98.6 84 24 155/74 92 Room Air 98.6 Status: unchanged Disposition: ELOPED Condition: Serious Referrals: [facility]ERR[facility] (PCP) Zohra Chatterjee DO Feb 07, 2018 19:32
--- NOTE | 2018-02-09 07:13 | Cardiology Report ---
APPROVED REPORT EKG Measurement Heart [id number] Sinus tachycardia Biatrial enlargement Rightward axis Pulmonary disease pattern T wave abnormality, consider inferior ischemia Abnormal ECG
== END 2018-02-07 15:50 | disposition left against medical advice (07) ==
LOC: EMR 13:38
DX: R10.9 Unspecified abdominal pain (principal); J40 Bronchitis, not specified as acute or chronic; I10 Essential (primary) hypertension; E11.9 Type 2 diabetes mellitus without complications
CPT/HCPCS: 36415; 71045; 74176; 80053; 82550; 82553; 83690; 84484; 85007; 85025; 93005; 96372; 99284

== ENCOUNTER 2018-07-17 15:47 | Emergency (ER) | payer OTHER ==
[~2018-07-17] VITALS: Ht 180.3 cm; Wt 68.0 kg
[2018-07-17 16:05] VITALS: BP 145/90
[2018-07-17] MEDS ORDERED: PERMETHRIN60 GM TOPIC (16:34)
[2018-07-17] MEDS ORDERED: CEPHALEXIN500 MG ORAL (16:34)
[2018-07-17] MEDS ORDERED: OFLOXACIN10 ML BOTH EYES (16:34)
[2018-07-17] MEDS ORDERED: DIPHENHYDRAMINE25 M1 ORAL (16:34)
[2018-07-17] MEDS ORDERED: PREDNISONE20 MG ORAL (16:34)
[2018-07-17 16:53] VITALS: BP 145/90
--- NOTE | 2018-07-17 18:53 | Emergency Room Report ---
History of Present Illness General Chief Complaint: Skin Rash/Abscess Source: Patient Present Illness HPI 57-year-old male presents ED for evaluation. Complaining of rash 2 weeks. All over his body. States it is itchy and painful. 7 out of 10, dull, nonradiating. Denies fevers or chills. States he's had scabies in the past but does not think it is scabies. History of HIV. States he is compliant with his medications. No other aggravating relieving factors. Denies any other associated symptoms Allergies: Coded Allergies: No Known Allergies (Unverified , 07/04/15) Patient History Past Medical History: HTN, asthma, COPD, HIV Past Surgical History: none Pertinent Family History: none Social History: Denies: smoking, alcohol use, drug use Immunizations: UTD Reviewed Nursing Documentation: PMH: Agreed; PSxH: Agreed Nursing Documentation-PMH Hx Cardiac Problems: Yes - HIV Hx Hypertension: Yes Hx Pacemaker: No Hx Asthma: No Hx COPD: Yes Hx Diabetes: Yes Hx Cancer: No Hx Gastrointestinal Problems: No Hx Dialysis: No Hx Neurological Problems: No Hx Cerebrovascular Accident: No Hx Seizures: No Review of Systems All Other Systems: negative except mentioned in HPI Physical Exam Vital Signs Date Time Temp Pulse Resp B/P (MAP) Pulse Ox O2 Delivery O2 Flow Rate FiO2 07/17/18 15:56 98.4 93 17 146/87 97 07/17/18 16:05 Room Air Sp02 EP Interpretation: reviewed, normal General Appearance: no apparent distress, alert, GCS 15, non-toxic Head: normocephalic, atraumatic Eyes: bilateral eye normal inspection, bilateral eye PERRL ENT: hearing grossly normal, normal pharynx, no angioedema, normal voice Neck: full range of motion, supple/symm/no masses Respiratory: chest non-tender, lungs clear, normal breath sounds, speaking full sentences Cardiovascular #1: regular rate, rhythm, no edema Cardiovascular #2: 2+ carotid (R), 2+ carotid (L), 2+ radial (R), 2+ radial (L) , 2+ dorsalis pedis (R), 2+ dorsalis pedis (L) Gastrointestinal: normal bowel sounds, non tender, soft, non-distended, no guarding, no rebound Rectal: deferred Genitourinary: normal inspection, no CVA tenderness Musculoskeletal: back normal, gait/station normal, normal range of motion, non- tender Neurologic: alert, oriented x3, responsive, motor strength/tone normal, sensory intact, speech normal Psychiatric: judgement/insight normal, memory normal, mood/affect normal, no suicidal/homicidal ideation Reflexes: 3+ bicep (R), 3+ bicep (L), 3+ tricep (R), 3+ tricep (L), 3+ knee (R) , 3+ knee (L) Skin: normal color, warm/dry, well hydrated, other - linear diffuse rash to body. Lymphatic: no adenopathy Medical Decision Making Diagnostic Impression: Primary Impression: Dermatitis ER Course Hospital Course 57 yo M presents with rash Differential diagnoses include: Cellulitis, dermatitis, insect bite, abscess Clinical course Patient placed on stretcher. After initial history, physical exam reveals a middle aged male in no acute distress. On exam there is a diffuse linear type rash to the body. Nonerythematous base. No discharge. Based on my exam I believe it is scabies but patient denies. We will prescribe Elimite and prednisone and Benadryl and Keflex. Safe for discharge close outpatient follow-up Diagnosis - dermatitis stable and discharged to home with prescription for benedryl, prednisone, elimite and keflex. Instructed to followup with PMD. Instructed return to ED if symptoms recur or worsen Last Vital Signs Date Time Temp Pulse Resp B/P (MAP) Pulse Ox O2 Delivery O2 Flow Rate FiO2 07/17/18 16:53 98.6 90 18 145/90 98 Room Air Status: improved Disposition: HOME, SELF-CARE Condition: Stable Scripts Ofloxacin (Ofloxacin) 5 Ml Drops 1 DROP BOTH EYES QID for 7 Days, ML Prov: Reymundo Ohara MD 07/17/18 Diphenhydramine Hcl* (DIPHENHYDRAMINE HCL*) 25 Mg Capsule 25 MG ORAL Q6H PRN for Itching, #30 CAP 0 Refills Prov: Reymundo Ohara MD 07/17/18 Prednisone* (PREDNISONE*) 20 Mg Tablet 40 MG ORAL DAILY, #10 TAB Prov: Reymundo Ohara MD 07/17/18 Permethrin* (ELIMITE*) 60 Gm Cream..g. 1 APPLIC TOPIC ONCE, #1 TUBE 0 Refills Apply cream from head to toe; leave on for 8-14 hours before washing off with water Prov: Reymundo Ohara MD 07/17/18 Cephalexin* (KEFLEX*) 500 Mg Capsule 500 MG ORAL EVERY 6 HOURS for 7 Days, CAP Prov: Reymundo Ohara MD 07/17/18 Referrals: [facility],REFERR[facility] (PCP) Patient Instructions: Reymundo Paulino MD Jul 17, 2018 18:52
== END 2018-07-17 16:53 | disposition home or self-care (01) ==
LOC: EMR 16:15
DX: L30.9 Dermatitis, unspecified (principal); I10 Essential (primary) hypertension; E11.9 Type 2 diabetes mellitus without complications; J44.9 Chronic obstructive pulmonary disease, unspecified; Z21 Asymptomatic human immunodeficiency virus [HIV] infection status
CPT/HCPCS: 99283

== ENCOUNTER 2019-03-05 23:06 | Emergency (ER) | payer OTHER ==
[~2019-03-05] VITALS: Ht 180.3 cm; Wt 74.8 kg
[~2019-03-05 23:06] MED LIST changes: +OFLOXACIN10 ML BOTH EYES
[2019-03-06] MEDS ORDERED: Bactrim-DS 1 tab ORAL ONE
[2019-03-06] MEDS ORDERED: Lidocaine 1% MPF 10mg/ml 5ml INJ ONE
--- NOTE | 2019-03-06 00:24 | Emergency Room Report ---
History of Present Illness General Chief Complaint: Skin Rash/Abscess Source: Patient Present Illness HPI Patient presents with complaints of multiple lesions on the skin area Complaining that off-and-on over the past several months he has had increased regions that are uncomfortable Points to the mid lower back lower abdominal area denies any fevers or chills denies any chest pain or shortness of breath denies any vomiting or diarrhea Allergies: Coded Allergies: No Known Allergies (Unverified , 07/04/15) Patient History Past Medical History: see triage record Pertinent Family History: none Reviewed Nursing Documentation: PMH: Agreed; PSxH: Agreed Nursing Documentation-PM Past Medical History: No History, Except For Hx Cardiac Problems: Yes - HIV Hx Hypertension: Yes Hx Pacemaker: No Hx Asthma: No Hx COPD: Yes Hx Diabetes: Yes Hx Cancer: No Hx Gastrointestinal Problems: No Hx Dialysis: No Hx Neurological Problems: No Hx Cerebrovascular Accident: No Hx Seizures: No Review of Systems All Other Systems: negative except mentioned in HPI Physical Exam Vital Signs Date Time Temp Pulse Resp B/P (MAP) Pulse Ox O2 Delivery O2 Flow Rate FiO2 03/05/19 23:19 98.6 99 14 125/79 (94) 99 Room Air Sp02 EP Interpretation: reviewed, normal General Appearance: no apparent distress - However patient is mildly disheveled possibly homeless Head: normocephalic, atraumatic Eyes: bilateral eye PERRL, bilateral eye EOMI ENT: hearing grossly normal, normal pharynx, TMs + canals normal, uvula midline Neck: full range of motion, supple, no meningismus, no bony tend Respiratory: lungs clear, normal breath sounds, no rhonchi, no respiratory distress, no retraction, no accessory muscle use Cardiovascular #1: normal peripheral pulses, regular rate, rhythm, no edema, no gallop, no JVD, no murmur Gastrointestinal: normal bowel sounds, non tender, soft, no mass, no organomegaly, non-distended, no guarding, no hernia, no pulsatile mass, no rebound Genitourinary: no CVA tenderness Musculoskeletal: normal inspection Neurologic: oriented x3, responsive, blacktop paver operator III-XII nml as tested, motor strength/ tone normal, sensory intact Psychiatric: mood/affect normal Skin: other - Several areas of mildly raised erythematous lesions with central scab formation specifically including the left lower back bilateral lower abdominal area appeared to be consistent with likely insect bite, no obvious fluctuance Lymphatic: normal inspection, no adenopathy Medical Decision Making Diagnostic Impression: Primary Impression: Rash and other nonspecific skin eruption Additional Impression: Folliculitis ER Course Treated on antibiotics At this time does not appear septic or toxic And will have initial conservative outpatient trial Last Vital Signs Date Time Temp Pulse Resp B/P (MAP) Pulse Ox O2 Delivery O2 Flow Rate FiO2 03/05/19 23:19 98.6 99 14 125/79 (94) 99 Room Air Status: improved Disposition: HOME, SELF-CARE Condition: Improved Scripts Hydrocortisone/Aloe Vera 1%* (HYDROCORTISONE-ALOE 1% CREAM*) Y Cr 1 APPLIC TOPIC Q6H PRN for Itching, #30 GM Prov: Zohra Chatterjee DO 03/06/19 Cephalexin* (KEFLEX*) 500 Mg Capsule 500 MG ORAL EVERY 6 HOURS for 7 Days, CAP Prov: Zohra Chatterjee DO 03/06/19 Methylprednisolone (Methylprednisolone*) 4MG Dspk 4 MG ORAL DIRECTED for 6 Days, #21 EA 0 Refills Day 1: Two tablets before breakfast, one after lunch, one after dinner, and two at bedtime. If started late in the day, take all six tablets at once or divide into two or three doses, unless otherwise directed by prescriber. Day 2: One tablet before breakfast, one after lunch, one after dinner, and two at bedtime Day 3: One tablet before breakfast, one after lunch, one after dinner, and one at bedtime Day 4: One tablet before breakfast, one after lunch, and one at bedtime Day 5: One tablet before breakfast and one at bedtime Day 6: One tablet before breakfast Prov: Zohra Chatterjee DO 03/06/19 Referrals: [facility]ERR[facility] (PCP) Additional Instructions: Patient is provided with the discharge instructions notified to follow up with primary doctor in the next 2-3 days otherwise return to the er with any worsening symptoms. Please note that this report is being documented using [employer] technology. This can lead to erroneous entry secondary to incorrect interpretation by the dictating instrument. Zohra Chatterjee DO Mar 06, 2019 00:24
[2019-03-06] MEDS ORDERED: MEDROL DOSEPAK4 MG ORAL (00:36)
[2019-03-06] MEDS ORDERED: HYDROCORTISONE-30 GM TOPIC (00:36)
[2019-03-06] MEDS ORDERED: CEPHALEXIN500 MG ORAL (00:36)
[2019-03-06 01:00] VITALS: BP 131/71
--- NOTE | 2019-03-06 01:00 | NUR ---
ED Nurse Note: pt seen by md for generalized rash for about 1 month, pt has been treatd for scabies in the past, denies being homeless, statees has an apartment and has a lot of cats, pt c/o severe itching and redness noted over entire body, pt denies fevers, cp, sob, or any allergies to anything, pt medicated as ordered, no s/s of adverse reaction noted, pt is currently being d/c to home, given f/u info and after care instructions, re-verbalizes proper medication administration and s/s to monitor for, pt armband removed, nad notted during d/c to home.
== END 2019-03-06 01:00 | disposition home or self-care (01) ==
LOC: EMR 23:51
DX: R21 Rash and other nonspecific skin eruption (principal); L73.9 Follicular disorder, unspecified; B20 Human immunodeficiency virus [HIV] disease; I10 Essential (primary) hypertension; E11.9 Type 2 diabetes mellitus without complications; J44.9 Chronic obstructive pulmonary disease, unspecified
CPT/HCPCS: 96372; 99283; J0696

== ENCOUNTER 2019-09-30 09:28 | Emergency (ER) | payer OTHER ==
[~2019-09-30] VITALS: Ht 180.3 cm; Wt 68.0 kg
[~2019-09-30 09:28] MED LIST changes: +MEDROL DOSEPAK4 MG ORAL
[2019-09-30 09:34] VITALS: BP 164/83
--- NOTE | 2019-09-30 09:38 | Emergency Room Report ---
History of Present Illness General Chief Complaint: rash Source: Patient Present Illness HPI Patient presents with complaints of rash Worsening over the past 1 to 2 days Patient denies any fevers denies any chest pain He feels that the rash is fairly diffuse involving the upper torso arms also has lesions on the testicular area And diffusely in the lower extremities Denies any vomiting or diarrhea Denies any recent travel Denies any shortness of breath or difficulty swallowing Allergies: Coded Allergies: No Known Allergies (Unverified , 07/04/15) Patient History Past Medical History: see triage record Reviewed Nursing Documentation: PMH: Agreed; PSxH: Agreed Nursing Documentation-PMH Hx Cardiac Problems: Yes - HIV Hx Hypertension: Yes Hx Pacemaker: No Hx Asthma: No Hx COPD: Yes Hx Diabetes: Yes Hx Cancer: No Hx Gastrointestinal Problems: No Hx Dialysis: No Hx Neurological Problems: No Hx Cerebrovascular Accident: No Hx Seizures: No Review of Systems All Other Systems: negative except mentioned in HPI Physical Exam 99% on room air which is normal Sp02 EP Interpretation: reviewed, normal General Appearance: mild distress - Patient appears agitated Head: normocephalic, atraumatic Eyes: bilateral eye PERRL, bilateral eye EOMI ENT: EOM grossly intact, normal pharynx Neck: supple, no meningismus Respiratory: lungs clear, no respiratory distress, no retraction Cardiovascular #1: regular rate, rhythm Gastrointestinal: non tender, soft Genitourinary: other - Similar rash and scab formation under the testicular scrotal area Musculoskeletal: normal inspection Neurologic: alert, oriented x3 Psychiatric: anxious - Agitated Skin: other - Diffuse scab formation involving the chest upper arms and lower extremity, patient also has increased irritation forehead and facial area Lymphatic: no adenopathy Medical Decision Making Diagnostic Impression: Primary Impression: Rash and other nonspecific skin eruption ER Course The findings appear to be consistent with what appears to be scabies Other contact dermatitis cannot be fully ruled out patient also has Hair coloring which could worsen the facial irritation he is encouraged not to Touch or use any products Patient will require prescription medication And requires close outpatient follow-up Status: improved Disposition: HOME, SELF-CARE Condition: Improved - Patient is provided with the discharge instructions notified to follow up with primary doctor in the next 2-3 days otherwise return to the er with any worsening symptoms.Please note that this report is being documented using Appear Here technology. This can lead to erroneous entry secondary to incorrect interpretation by the dictating instrument. Scripts Naphazoline Hcl/Glycerin (CLEAR EYES REDNESS RELIEF DROP) 30 Ml Drops 2 DROP OPHTHALM BID for 7 Days, ML Prov: Zohra Chatterjee DO 09/30/19 Hydrocortisone/Aloe (Hydrocortisone/Aloe 1% Cream*) Y Cr 1 APPLIC TOPIC Q6H PRN for Itching for 5 Days, #30 GM Prov: Zohra Chatterjee DO 09/30/19 Methylprednisolone (Methylprednisolone*) 4MG Dspk 4 MG ORAL DIRECTED for 6 Days, #21 EA 0 Refills Day 1: Two tablets before breakfast, one after lunch, one after dinner, and two at bedtime. If started late in the day, take all six tablets at once or divide into two or three doses, unless otherwise directed by prescriber. Day 2: One tablet before breakfast, one after lunch, one after dinner, and two at bedtime Day 3: One tablet before breakfast, one after lunch, one after dinner, and one at bedtime Day 4: One tablet before breakfast, one after lunch, and one at bedtime Day 5: One tablet before breakfast and one at bedtime Day 6: One tablet before breakfast Prov: Zohra Chatterjee DO 09/30/19 Permethrin* (ELIMITE*) 60 Gm Cream..g. 1 APPLIC TOPIC ONCE, #60 GM 0 Refills Apply cream from head to toe; leave on for 8-14 hours before washing off with water; may reapply in 1 week if live mites appear. Prov: Zohra Chatterjee DO 09/30/19 Additional Instructions: Patient is provided with the discharge instructions notified to follow up with primary doctor in the next 2-3 days otherwise return to the er with any worsening symptoms. Please note that this report is being documented using Appear Here technology. This can lead to erroneous entry secondary to incorrect interpretation by the dictating instrument. Zohra Chatterjee DO Sep 30, 2019 09:38
--- NOTE | 2019-09-30 09:40 | NUR ---
ED Nurse Note: patient walked into ED from home due to rash and itchiness all over his body. patient reports he was with someone's house for the last 2 days, patient reports the symptom just started today this morning.
[2019-09-30] MEDS ORDERED: Solu-MEDROL 125mg Inj IM ONE (09:45)
[2019-09-30] MEDS ORDERED: DiphenhydrAMINE 25mg Tab ORAL ONE (09:45)
[2019-09-30] MEDS ORDERED: PERMETHRIN60 GM TOPIC (09:48)
[2019-09-30] MEDS ORDERED: MEDROL DOSEPAK4 MG ORAL (09:48)
[2019-09-30] MEDS ORDERED: HYDROCORTISONE-30 GM TOPIC (09:48)
--- NOTE | 2019-09-30 09:48 | NUR ---
ED Nurse Note: solumedrol shot given on the left upper arm instead, patient requested this site instead.
--- NOTE | 2019-09-30 10:15 | NUR ---
ED Nurse Note: new sets of pants and t shirts provided to the patient as requested. patient given sandwiches and water, juice as requested.
[2019-09-30] MEDS ORDERED: CLEAR EYES REDN30 M1 OPHTHALM (10:17)
[2019-09-30 10:30] VITALS: BP 164/83
--- NOTE | 2019-09-30 10:30 | NUR ---
ER DISCHARGE NOTE: Patient is cleared to be discharged per PRACHI TAM, pt is aox4, on room air, with stable vital signs. pt was given dc and prescription instructions, pt was able to verbalize understanding, pt id band removed without complications. pt is able to ambulate with steady gait. pt took all belongings.
== END 2019-09-30 10:30 | disposition home or self-care (01) ==
LOC: EMR 09:40
DX: R21 Rash and other nonspecific skin eruption (principal); B20 Human immunodeficiency virus [HIV] disease; I10 Essential (primary) hypertension; J44.9 Chronic obstructive pulmonary disease, unspecified; E11.9 Type 2 diabetes mellitus without complications
CPT/HCPCS: 96372; J2930; Z7502; 99283